=== PATIENT | female | born 1950 | race Caucasian/White ===

== ENCOUNTER → 2018-04-09 15:00 | Outpatient (CLI) | payer MEDICARE, OTHER, SELFPAY | DX: Z23 Encounter for immunization (principal) | CPT/HCPCS: 90471; 90662 ==

== ENCOUNTER → 2018-09-16 16:42 | Outpatient (CLI) | payer MEDICARE, OTHER, SELFPAY ==
--- NOTE | 2018-09-16 16:44 | DI.RAD.S_ITS ---
PROCEDURE: XR CHEST 2V INDICATIONS: COUGH AND INFLUENZA TECHNIQUE: 2 views of the chest were acquired. COMPARISON: [facility], CHEST 2 VIEW, 02/11/2017, 11:38. [facility], CHEST 2 VIEW, 11/24/2013, 13:37. FINDINGS: Surgical changes and devices: None. Lungs and pleura: Lungs are abnormal with large lung volumes and possible COPD. No pleural effusions or pneumothorax. Mediastinum: Mediastinal contours are normal. Heart size is normal. Bones and chest wall: No suspicious bony abnormalities. Soft tissues appear unremarkable. IMPRESSION: The lung volumes are large, COPD is suspected. No pneumonia found. Dictated by: Leo Benítez M.D. on 09/16/2018 at 17:16 Approved by: Leo Benítez M.D. on 09/16/2018 at 17:16
== END ==
PROVIDERS: Visit Provider Student in an Organized Health Care Education/Training Program
DX: R05 Cough (principal); J09.X2 Influenza due to identified novel influenza A virus with other respiratory manifestations
CPT/HCPCS: 71046

== ENCOUNTER → 2018-09-25 08:59 | Outpatient (CLI) | payer MEDICARE, OTHER, SELFPAY ==
--- NOTE | 2018-09-25 | DI.RAD.S_ITS ---
PROCEDURE: XR CHEST 2V INDICATIONS: DIAGNOSED WITH INFLUENZA, RECENT CHEST XRAY WAS NEGATIVE TECHNIQUE: 2 views of the chest were acquired. COMPARISON: [facility], CR, XR CHEST 2V, 09/16/2018, 16:48. FINDINGS: Surgical changes and devices: None. Lungs and pleura: No acute consolidation. Scattered subsegmental atelectasis and/or scarring. No pleural effusions or pneumothorax. Mediastinum: Mediastinal contours are normal. Heart size is normal. Bones and chest wall: No suspicious bony abnormalities. Soft tissues appear unremarkable. IMPRESSION: Scattered scarring/atelectasis. No acute consolidation. Dictated by: Curtis Ceballos M.D. on 09/25/2018 at 9:31 Approved by: Curtis Ceballos M.D. on 09/25/2018 at 9:31
== END ==
PROVIDERS: PCP Physician Assistant; Visit Provider Internal Medicine
DX: J10.00 Influenza due to other identified influenza virus with unspecified type of pneumonia (principal); J18.9 Pneumonia, unspecified organism
CPT/HCPCS: 71046

== ENCOUNTER → 2018-10-14 11:24 | Outpatient (CLI) | payer MEDICARE, OTHER, SELFPAY ==
--- NOTE | 2018-10-14 | DI.MG.S_ITS ---
BILATERAL DIGITAL SCREENING MAMMOGRAM 3D/2D WITH CAD: 10/14/2018 CLINICAL: Routine screening. Family history of breast cancer. Comparison is made to exams dated: 09/26/2017 mammogram, 09/12/2016 mammogram, and 09/05/2015 mammogram - [facility]. There are scattered fibroglandular elements in both breasts. Current study was also evaluated with a Computer Aided Detection (CAD) system. There are benign calcifications in the right breast. No significant masses, calcifications, or other findings are seen in either breast. There has been no significant interval change. IMPRESSION: There is no mammographic evidence of malignancy. A 1 year screening mammogram is recommended. This exam was interpreted at Station ID: [id number]. NOTE: For mammograms, a report in lay terms will be sent to the patient. Approximately 15% of breast malignancies will not be visualized mammographically. In the management of a palpable breast mass, a negative mammogram must not discourage biopsy of a clinically suspicious lesion. Electronically Signed By: Jaret knight/shekhar:10/15/2018 07:59:46 letter sent: Normal Exam ACR BI-RADS Category 2: Benign Finding(s) 3342F
== END ==
PROVIDERS: PCP Physician Assistant; Visit Provider Physician Assistant
DX: Z12.31 Encounter for screening mammogram for malignant neoplasm of breast (principal); Z80.3 Family history of malignant neoplasm of breast
CPT/HCPCS: 77063; 77067

== ENCOUNTER → 2019-01-05 09:26 | Outpatient (CLI) | payer MEDICARE, OTHER, SELFPAY | PROVIDERS: PCP Internal Medicine; Visit Provider Internal Medicine | DX: M85.852 Other specified disorders of bone density and structure, left thigh (principal); Z78.0 Asymptomatic menopausal state; Z82.62 Family history of osteoporosis | CPT/HCPCS: 77080 ==

== ENCOUNTER → 2019-04-16 11:38 | Outpatient (CLI) | payer MEDICARE, OTHER, SELFPAY ==
[2019-04-16 12:25] LABS: Alanine Aminotransferase 22 IU/L (9-52); Albumin 4.3 g/dL (3.5-5.0); Albumin Globulin Ratio 1.7 (1.0-2.8); Alkaline Phosphatase 62 U/L (38-126); Aspartate Aminotransferase 32 IU/L (14-36); BUN Creatinine Ratio 16.7 (6-22); Blood Urea Nitrogen 15 mg/dL (7-17); Calcium 10.3 mg/dL (8.4-10.2); Carbon Dioxide 28 mmol/L (22-32); Chloride 104 mmol/L (98-107); Estimated Glomerular Filt Rate > 60.0 mL/min (>60); Globulin 2.5 g/dL (1.7-4.1); Glucose 134 mg/dL (80-110); HEMOLYSIS < 15 (0-50); Potassium 4.1 mmol/L (3.4-5.1); Sodium 138 mmol/L (137-145); Total Protein 6.8 g/dL (6.3-8.2)
[2019-04-21 07:38] LABS: Parathyroid Hormone Int 15 pg/mL (14-64)
[2019-04-24 13:59] LABS: Ionized Calcium 5.5 mg/dL (4.8-5.6)
== END ==
PROVIDERS: PCP Physician Assistant; Visit Provider Physician Assistant
DX: R53.83 Other fatigue (principal); E83.52 Hypercalcemia
CPT/HCPCS: 36415; 80053; 82330; 83970

== ENCOUNTER → 2019-07-19 12:05 | Outpatient (CLI) | payer MEDICARE, OTHER, SELFPAY ==
[2019-07-19 12:47] LABS: Add Manual Diff / Slide Review NO; Basophils Absolute Auto 100 /uL (0-100); Basophils Percent Auto 0.8 % (0-2); Eosinophils Absolute Auto 100 /uL (0-450); Eosinophils Percent Auto 1.7 % (2-4); Hemoglobin 13.1 g/dL (12.0-16.0); Lymphocytes Absolute Auto 900 /uL (1100-4500); Lymphocytes Percent Auto 15.3 % (25-40); Mean Corpuscular HGB Conc 33.7 % (30-36); Mean Corpuscular Hemoglobin 30.3 PG (26-34); Monocytes Absolute Auto 300 /uL (0-900); Monocytes Percent Auto 4.1 % (3-14); Neutrophils Absolute Auto 4800 /uL (1500-7000); Neutrophils Percent Auto 78.1 % (50-75); Platelet Count 268 X10^3/uL (150-400); Red Blood Cell Count 4.33 X10^6/uL (4.0-5.2); Red Cell Distribution Width 13.2 % (11.6-14.8); White Blood Cell Count 6.1 X10^3/uL (4.5-11.0)
[2019-07-19 12:54] LABS: Alanine Aminotransferase 25 IU/L (<35); Albumin 4.7 g/dL (3.5-5.0); Alkaline Phosphatase 64 U/L (38-126); Aspartate Aminotransferase 35 IU/L (14-36); BUN Creatinine Ratio 16.7 (6-22); Blood Urea Nitrogen 15 mg/dL (7-17); Calcium 10.9 mg/dL (8.4-10.2); Carbon Dioxide 28 mmol/L (22-32); Chloride 105 mmol/L (98-107); Cholesterol 241 mg/dL (140-199); Estimated Glomerular Filt Rate > 60.0 mL/min (>60); Globulin 2.4 g/dL (1.7-4.1); Glucose 101 mg/dL (80-110); HDL Cholesterol 67 mg/dL (40-60); HEMOLYSIS < 15 (0-50); LDL Cholesterol Calculated 140 mg/dL (<100); Potassium 4.6 mmol/L (3.4-5.1); Sodium 141 mmol/L (137-145); Total Protein 7.1 g/dL (6.3-8.2); Triglycerides 172 mg/dL (35-150)
[2019-07-19 13:22] LABS: Lithium 0.9 mmol/L (0.6-1.2)
[2019-07-19 13:45] LABS: Free T4, Direct Thyroxine 0.79 ng/dL (0.78-2.19)
[2019-07-19 13:59] LABS: Thyroid Stimulating Hormone 2.36 uIU/mL (0.47-4.68)
[2019-07-23 20:19] LABS: Lamotrigine Lamictal 6.7 mcg/mL (4.0-18.0)
== END ==
PROVIDERS: PCP Physician Assistant; Visit Provider Psychiatry & Neurology Psychiatry
DX: F33.2 Major depressive disorder, recurrent severe without psychotic features (principal); E78.5 Hyperlipidemia, unspecified
CPT/HCPCS: 36415; 80053; 80061; 80175; 80178; 84439; 84443; 85025

== ENCOUNTER → 2020-02-08 12:10 | Outpatient (CLI) | payer MEDICARE, OTHER, SELFPAY ==
--- NOTE | 2020-02-08 | DI.RAD.S_ITS ---
PROCEDURE: XR LUMBAR SPINE 2-3V INDICATIONS: PAIN IN BOTH LEGS TECHNIQUE: 3 views of the lumbar spine were acquired. COMPARISON: None. FINDINGS: Bones: Findings [id number] vertebrae are present. There is mild convex right lumbar spine curvature. There is mild L4-L5 anterolisthesis. No vertebral body compression fractures. No suspicious bony lesions. Severe L2-L3 degenerate disc disease. Moderate L4-L5 and L5-S1 degenerative disease. Mild L1-L2 and L3-L4 degenerative disc disease. Mild L4-L5 and L5-S1 facet arthropathy. Soft tissues: Overlying bowel gas pattern is normal. No suspicious soft tissue calcifications. IMPRESSION: 1. Multilevel degenerative disease. 2. Multilevel facet arthropathy. 3. No fracture. No acute osseous lesion. If symptoms and/or clinical suspicion for pathology persists, evaluation with MRI may be helpful for further assessment. Dictated by: Sherlyn Barrios MD, PhD on 02/08/2020 at 18:00 Approved by: Sherlyn Barrios MD, PhD on 02/08/2020 at 18:02
[2020-02-08 13:51] LABS: Add Manual Diff / Slide Review NO; Basophils Absolute Auto 0 /uL (0-100); Basophils Percent Auto 0.8 % (0-2); Eosinophils Absolute Auto 100 /uL (0-450); Eosinophils Percent Auto 1.5 % (2-4); Hematocrit 37.6 % (36-46); Hemoglobin 12.5 g/dL (12.0-16.0); Lymphocytes Absolute Auto 1000 /uL (1100-4500); Lymphocytes Percent Auto 15.7 % (25-40); Mean Corpuscular HGB Conc 33.2 % (30-36); Mean Corpuscular Hemoglobin 29.3 PG (26-34); Mean Corpuscular Volume 88.2 fL (80-100); Monocytes Absolute Auto 300 /uL (0-900); Monocytes Percent Auto 4.8 % (3-14); Neutrophils Absolute Auto 4700 /uL (1500-7000); Neutrophils Percent Auto 77.2 % (50-75); Platelet Count 251 X10^3/uL (150-400); Red Blood Cell Count 4.26 X10^6/uL (4.0-5.2); Red Cell Distribution Width 12.9 % (11.6-14.8); White Blood Cell Count 6.1 X10^3/uL (4.5-11.0)
[2020-02-08 14:06] LABS: HEMOLYSIS < 15 (0-50); Iron 134 ug/dL (37-170); Lithium 0.8 mmol/L (0.6-1.2)
[2020-02-08 14:12] LABS: Alanine Aminotransferase 28 IU/L (<35); Albumin 4.5 g/dL (3.5-5.0); Albumin Globulin Ratio 1.9 (1.0-2.8); Alkaline Phosphatase 68 U/L (38-126); Aspartate Aminotransferase 31 IU/L (14-36); BUN Creatinine Ratio 17.9 (6-22); Bilirubin Total 1.1 mg/dL (0.2-1.3); Blood Urea Nitrogen 15 mg/dL (7-17); Calcium 10.3 mg/dL (8.4-10.2); Carbon Dioxide 28 mmol/L (22-32); Chloride 106 mmol/L (98-107); Cholesterol 225 mg/dL (140-199); Estimated Glomerular Filt Rate > 60.0 mL/min (>60); Globulin 2.4 g/dL (1.7-4.1); Glucose 98 mg/dL (80-110); HDL Cholesterol 61 mg/dL (40-60); HEMOLYSIS < 15 (0-50); LDL Cholesterol Calculated 125 mg/dL (<100); Potassium 4.4 mmol/L (3.4-5.1); Sodium 138 mmol/L (137-145); Total Protein 6.9 g/dL (6.3-8.2); Triglycerides 195 mg/dL (35-150)
[2020-02-08 14:17] LABS: Percent Iron Saturation 44 % (15-50); Total Iron Binding Capacity 303 ug/dL (265-497); Transferrin 233 mg/dL (206-381)
[2020-02-08 14:38] LABS: TSH w/ Reflex to FT4 2.14 uIU/mL (0.47-4.68)
[2020-02-08 14:46] LABS: Vitamin D 25 Hydroxy (D3) 19.2 ng/mL (30.0-100.0)
[2020-02-09 06:40] LABS: Parathyroid Hormone Int 25 pg/mL (15-65)
== END ==
PROVIDERS: PCP Physician Assistant; Referring Provider Physician Assistant; Visit Provider Physician Assistant
DX: M79.662 Pain in left lower leg (principal); M79.661 Pain in right lower leg; M51.36 Other intervertebral disc degeneration, lumbar region; M51.37 Other intervertebral disc degeneration, lumbosacral region; M47.816 Spondylosis without myelopathy or radiculopathy, lumbar region; M47.817 Spondylosis without myelopathy or radiculopathy, lumbosacral region; K11.7 Disturbances of salivary secretion; F33.9 Major depressive disorder, recurrent, unspecified; E03.9 Hypothyroidism, unspecified; F41.9 Anxiety disorder, unspecified; D50.9 Iron deficiency anemia, unspecified; E55.9 Vitamin D deficiency, unspecified; E78.2 Mixed hyperlipidemia
CPT/HCPCS: 36415; 72100; 80053; 80061; 80178; 82306; 83540; 83550; 83970; 84443; 85025; 99214

== ENCOUNTER → 2020-03-01 15:28 | Outpatient (CLI) | payer MEDICARE, OTHER, SELFPAY ==
--- NOTE | 2020-03-01 | DI.MRI.S_ITS ---
PROCEDURE: MR LUMBAR SPINE WO CON INDICATIONS: Spondylolisthesis, lumbar region TECHNIQUE: Noncontrast sagittal T1 spin echo and T2 fast echo, sagittal STIR, axial T1 and T2 fast spin echo through the lumbar spine. In cases with scoliosis, additional coronal T2 fast spin echo may be performed. COMPARISON: [facility], MR, L-SPINE WITHOUT CONTRAST, 01/02/2010, 18:12. [facility], CR, XR LUMBAR SPINE 2-3V, 02/08/2020, 12:08. FINDINGS: Image quality: This examination is limited by involuntary motion artifact. Alignment and Curvature: S-shaped scoliotic curvature is seen. There is minimal retrolisthesis seen at L2-3. Mild retrolisthesis is seen at L3-4. Mild grade 1 anterolisthesis is seen at L4-5, without associated pars defects. Minimal retrolisthesis is seen at L5-S1. Bone Marrow: Marrow is of normal overall signal. No acute vertebral body compression fractures. Spinal Cord: Conus medullaris terminates at the T12-L1 level. Visualized cord demonstrates normal signal and size. Paraspinous Soft Tissues: No paravertebral masses. T12-L1: Mild loss of disc height is seen. Loss of disc signal is seen. Mild disc bulge is seen, with a central disc extrusion, which is best seen on series 3, image 11. No significant neural foraminal narrowing is seen. Mild central canal narrowing is seen, as on series 5, image 8. The central disc extrusion is new compared to 2010. L1-L2: Mild loss of disc height is seen. Loss of disc signal is seen. Mild to moderate disc bulge is seen. Mild to moderate facet hypertrophy is seen. Associated hypertrophy of the ligamentum flavum can be seen. At least moderate bilateral neural foraminal narrowing is seen. Moderate central canal narrowing is seen. These imaging findings have progressed compared to the prior study. L2-L3: Moderate to severe loss of disc height and disc signal can be seen. Reactive marrow endplate changes are seen, which demonstrate mixed T1 weighted and T2-weighted signal, and are attributed to a combination of edema and fatty metaplasia (Modic type I and Modic type II changes). At least moderate disc bulge is seen. There is a mild central disc protrusion seen. There is mild to moderate facet hypertrophy seen. Fluid is seen within the facet joints themselves. There is moderate bilateral neural foraminal narrowing seen. At least moderate central canal narrowing is seen. These degenerative changes are worse than in 2010. L3-L4: The disc height is well-preserved. Loss of disc signal is seen at this level. At least moderate disc bulge is seen. There is a central disc extrusion seen. There is a focal annular fissure seen posteriorly. At least moderate facet hypertrophy is seen. Fluid is seen within the facet joints themselves. Associated hypertrophy of the ligamentum flavum can be seen. There is moderate to severe left-sided and at least moderate right-sided neural foraminal narrowing seen. Moderate to severe central canal narrowing is seen. These degenerative changes have progressed compared to 2010. L4-L5: The disc height is well-preserved. Loss of disc signal is seen at this level. Moderate disc bulge is seen, with a central disc protrusion. Prominent facet hypertrophy is seen. Associated hypertrophy of the ligamentum flavum can be seen. Fluid is seen within the facet joints themselves. There is at least moderate bilateral neural foraminal narrowing seen, right worse than left. There is a degree of compression seen upon the exiting nerve roots. Moderate to severe central canal narrowing is seen, as on series 5, image 27. These imaging findings have progressed compared to the prior study. L5-S1: Moderate to severe loss of disc height and disc signal can be seen. Moderate generalized disc bulge is seen. Moderate facet joint hypertrophy is seen. Moderate bilateral neural foraminal narrowing is seen, right worse than left. Minimal central canal narrowing is seen. When comparison is made with the prior examination, these findings are similar. IMPRESSION: Multiple levels of lumbar spine degenerative change are seen, which have clearly progressed compared to 2010. Dictated by: Tevin Abdalla M.D. on 03/01/2020 at 16:58 Approved by: Tevin Abdalla M.D. on 03/01/2020 at 17:05
== END ==
PROVIDERS: PCP Physician Assistant; Referring Provider Physician Assistant; Visit Provider Orthopaedic Surgery
DX: M47.816 Spondylosis without myelopathy or radiculopathy, lumbar region (principal); M47.817 Spondylosis without myelopathy or radiculopathy, lumbosacral region; M43.16 Spondylolisthesis, lumbar region
CPT/HCPCS: 72148

== ENCOUNTER 2020-06-08 13:41 | Emergency (ER) | payer MEDICARE, OTHER, SELFPAY ==
[2020-06-08] VITALS (7 sets, daily range): BP systolic 116–133; BP diastolic 59–73; PULSE 66–74; RESP 18; TEMP 36.2; O2SAT 98–100; BMI 22.8
--- NOTE | 2020-06-08 14:08 | PC.NURSE ---
Pt states she took too much of her Lamictal accidently. Rec'd a new RX from Dr Richmond that she states the pharmacy made a mistake of what they filled pt ended up taking 600mg instead of normal 200mg. reports felt weird this morning with mild dizziness, headache and nausea. States resolution of SX around noon today. Poison controlled called and spoke to [facility] Augustin. States not a toxic dose of Lamictal although side effects of dose taken are common. Advised of current EKG intervals and all WNL at this time. Advised to watch for increased ME and QRS intervals. Advised usual 5-6hr observation and that pt can be DC'd if asymptomatic since arrival is about [address] Kate made aware of conversation with Poison control. No new orders at this time. Pt resting on stretcher in NAD and VS WNL.
--- NOTE | 2020-06-08 14:12 | ED_ITS ---
HPI - Overdose General Chief Complaint: Toxicology Problem Stated Complaint: sent by Doctor Basilio for EKG Time Seen by Provider: 06/08/20 14:09 Source: patient Mode of arrival: Ambulatory Limitations: no limitations History of Present Illness HPI Narrative: This is a 70-year-old female who comes emergency department for concern for accidental overdose of her Lamictal. Patient states that she was instructed to take 100 mg of Lamictal in the morning and 100 mg in the evening but her prescription was 200 mg and she describes it as being possibly written is half tablet in the morning and half tablet in the evening but she misunderstood and was taking 200 mg in the morning and and 200 mg in the evening on Friday followed by 200 mg in the morning and 400 mg yesterday evening. She took an additional 200 mg this morning at about 9:30 a.m. and about 30 minutes later felt dizzy, felt like she had double vision and that she was sort of staggering around and felt nauseated. She also felt very twitchy. She has had a mild headache, she denies any chest pain or shortness of breath. She was nauseated but did not have any vomiting. She denies any new weakness, numbness or tingling in her extremities. No difficulty with speech. She did feel sort of foggy. She does normally takes prazosin and gabapentin which her long-term medications and they have been decreasing her lithium level over the last 2 week s. She takes these for depression. She denies any other current medications. She follows with Dr. Richmond as her psychiatrist and Mamta Boudreaux as her PCP. Related Data Previous Rx's Medication Instructions Recorded gabapentin 100 mg capsule 300 mg PO BID #120 cap 02/01/20 prazosin 1 mg capsule 3 mg PO BEDTIME #90 cap 02/01/20 lithium carbonate 300 mg tablet 450 mg PO BEDTIME #135 tab 03/22/20 hydroxyzine HCl 50 mg tablet 100 mg PO BEDTIME #180 tab 06/05/20 lamotrigine 100 mg tablet 200 mg PO BEDTIME #180 tab 06/05/20 Allergies Allergy/AdvReac Type Severity Reaction Status Date / Time fluoxetine [From Prozac] AdvReac Intermediate hand Verified 06/05/20 13:31 tremors, muscle spasms sertraline [From Zoloft] AdvReac Intermediate cysts on Verified 06/05/20 13:31 body Review of Systems Review of Systems ROS Unobtainable: All systems reviewed & are unremarkable except as noted in HPI and below Patient History Medical History (Updated 06/08/20 @ 14:37 by Joyce Kate DO) Major depressive disorder, recurrent severe without psychotic features (Acute) Surgical History H/O wrist surgery (Acute) H/O: hysterectomy (Acute) Social History Smoking Status: Never smoker Smoking Status: Never smoker Exam Narrative Exam Narrative: GEN: well nourished, well appearing female, alert and oriented x 3, patient appears to be in mild distress. HEENT: Atraumatic, pupils are equal round reactive to light, extraocular movements are intact, nares are clear, TMs are clear with no fluid, there is no conjunctival pallor. Throat is clear without any exudates, erythema, tonsillar enlargement or uvular deviation, no facial droop, no dysarthria HEART: Regular rate and rhythm without murmur, clicks, rubs. Pulses are equal in upper and lower extremities LUNGS:Lungs clear to auscultation, no wheezes, rales, crackles, chest moves symmetrically ABD:bowel sounds normal, soft, non-tender, no guarding, rebound, rigidity, no masses noted, no hepatosplenomegaly MSCL: Non-tender, no muscle atrophy, muscles strength 5/5 upper and lower extremities, full range of motion, normal gait NEURO:CN 2-12 intact, sensation normal, reflexes 2/4 upper and lower extremities. finger nose finger test normal, heel martin test normal SKIN: No rash, no erythema or skin changes Initial Vital Signs Initial Vital Signs: Vital Signs Pulse Rate 72 06/08/20 14:02 Pulse Oximetry 100 06/08/20 14:02 Scores GCS Armstrong coma scale eye opening: Spontaneous Armstrong coma scale verbal response: Orientated Dayna coma scale motor response: Obey commands Armstrong coma scale total score: 15 NIH Stroke Scale Level of Conciousness: Alert, keenly responsive Ask month/age: Answers both questions correctly. Open/close eyes, close hand: Performs both tasks correctly Best gaze horizontal: Normal Visual yo: No visual loss Facial palsy: Normal symetrical movement Left arm drift: No drift for full 10 sec Right arm drift: No drift for full 10 sec Left leg drift: No drift for full 5 sec Right leg drift: No drift for full 5 sec Limb ataxia: Absent Sensory on face/arms/legs: Normal, no sensory loss Best language: No aphasia, normal Dysarthria: Normal Extinction or inattention: No abnormality Total NIH Stroke scale score: 0 Course Orders Ordered: ED Orders 06/08/20 13:52 EKG-12 Lead Stat 06/08/20 14:47 Acetaminophen Stat Complete Blood Count AUTO DIFF Stat Comprehensive Metabolic Panel Stat Ethanol (ETOH) Stat Hepatic (Liver) Panel Stat [place] Stat Salicylate Stat Consultations Consultation #1: Poison control was consulted 600 mg of Lamictal would not be considered a toxic stroke for this patient per poison Control. They typically recommend 6 hours of observation for higher doses. To look up for QRS of [place] prolongation. Vital Signs Vital signs: Vital Signs - 8 hr 06/08/20 14:02 06/08/20 14:03 06/08/20 14:30 Temperature 97.2 F L Pulse Rate 72 72 68 Respiratory Rate 18 Blood Pressure 133/63 128/59 L Pulse Oximetry 100 99 98 06/08/20 14:57 06/08/20 14:59 06/08/20 15:00 Temperature Pulse Rate 74 68 67 Respiratory Rate Blood Pressure 129/71 129/73 Pulse Oximetry 99 99 100 06/08/20 15:30 Temperature Pulse Rate 66 Respiratory Rate Blood Pressure 116/68 Pulse Oximetry 99 MDM - Overdose Lab Data Attestation: I reviewed the patient's lab results. Lab results narrative: Patient has anemia with a hemoglobin 11.8 although this is not far from her baseline of 12 and half in January and 10/14/2016. Chemistry shows chloride of 109 otherwise normal sodium and potassium, BUN is 19 with normal renal function. Salicylate, Tylenol and ETOH are all negative with a low lithium level which is not unexpected if they been decreasing her dose. Result diagrams: 06/08/20 14:47 06/08/20 14:47 Labs: Lab Results 06/08/20 06/08/20 06/08/20 Range/Units 14:47 14:47 14:47 WBC 5.8 (4.5-11.0) X10^3/uL RBC 4.05 (4.0-5.2) X10^6/uL Hgb 11.8 L (12.0-16.0) g/dL Hct 35.7 L (36-46) % MCV 88.3 (80-100) fL MCH 29.2 (26-34) PG MCHC 33.0 (30-36) % RDW 13.5 (11.6-14.8) % Plt Count 255 (150-400) X10^3/uL Neut % (Auto) 75.7 H (50-75) % Lymph % (Auto) 17.4 L (25-40) % Stephenson % (Auto) 4.7 (3-14) % Eos % (Auto) 1.5 L (2-4) % Baso % (Auto) 0.7 (0-2) % Neut # (Auto) 4400 (9525-6741) /uL Lymph # (Auto) 1000 L (7241-5194) /uL Stephenson # (Auto) 300 (0-900) /uL Eos # (Auto) 100 (0-450) /uL Baso # (Auto) 0 (0-100) /uL Sodium 139 (137-145) mmol/L Potassium 4.1 (3.4-5.1) mmol/L Chloride 109 H (98-107) mmol/L Carbon Dioxide 28 (22-32) mmol/L BUN 19 H (7-17) mg/dL Creatinine 0.87 (0.52-1.04) mg/dL Estimated GFR > 60.0 (>60) mL/min BUN/Creatinine Ratio 21.8 (6-22) Glucose 105 (80-110) mg/dL Calcium 9.3 (8.4-10.2) mg/dL Total Bilirubin 1.0 (0.2-1.3) mg/dL Conjugated Bilirubin 0.0 (0.0-0.3) md/dL Unconjugated Bilirubin 0.9 (0.0-1.1) mg/dL AST 29 (14-36) IU/L ALT 24 (<35) IU/L Alkaline Phosphatase 66 (38-126) U/L Total Protein 6.4 (6.3-8.2) g/dL Albumin 4.1 (3.5-5.0) g/dL Globulin 2.3 (1.7-4.1) g/dL Albumin/Globulin Ratio 1.8 (1.0-2.8) Salicylates < 1.0 (<20) mg/dL Acetaminophen < 10 L (10-30) ug/mL [place] 0.5 L (0.6-1.2) mmol/L Ethyl Alcohol < 10 ( - 10) mg/dL ECG Data Attestation: I personally reviewed and interpreted this ECG as follows: Interpretation: Sinus rhythm, rate of 70, [place] 173, QRS of 110 and QTC of 444. Possible ST depression in V4 possibly V5 no other significant changes appreciated. MDM Narrative Medical decision making narrative: Per poison control the amount of lamictal ingested per patient is not toxic. She did have 2-3 days of extra dosage and likely is having side effects. She also has been decreasing her lithium dose so plan to check lithium level she has not had 1 recently. Patient's symptoms have continued to improve. She does not have any acute EKG changes. She is 6 hours from her last ingestion which would be the typical observation per poison control and is currently asymptomatic for the last several hours. Discharge Plan Departure Patient Disposition: Home Clinical Impression: Accidental medication overdose Discharge Date/Time: 06/08/20 15:54 Activity Restrictions/Additional Instructions: Follow-up with Dr. Richmond your scheduled appointment. I would recommend restarting your lamictal at the appropriate prescribed dose is tomorrow. You may continue your other medications as prescribed. Return to the ER for any new or concerning symptoms such as severe headaches, recurrent vision changes, difficulty with speech, weakness, numbness or difficulty with movement or ambulation, persistent vomiting, rash, suicidal thoughts or worsening depression. Prescriptions: No Action hydroxyzine HCl 50 mg tablet 100 mg PO BEDTIME Qty: 180 RF: 3 lamotrigine 100 mg tablet 200 mg PO BEDTIME Qty: 180 RF: 3 prazosin 1 mg capsule 3 mg PO BEDTIME Qty: 90 RF: 1 gabapentin 100 mg capsule 300 mg PO BID Qty: 120 RF: 1 lithium carbonate 300 mg tablet 450 mg PO BEDTIME Qty: 135 RF: 2 Referrals: Mamta Boudreaux PA-C [Primary Care Provider] - Ward Richmond MD [Physician] -
[2020-06-08 14:52] LABS: Add Manual Diff / Slide Review NO; Basophils Absolute Auto 0 /uL (0-100); Basophils Percent Auto 0.7 % (0-2); Eosinophils Absolute Auto 100 /uL (0-450); Eosinophils Percent Auto 1.5 % (2-4); Hematocrit 35.7 % (36-46); Hemoglobin 11.8 g/dL (12.0-16.0); Lymphocytes Absolute Auto 1000 /uL (1100-4500); Lymphocytes Percent Auto 17.4 % (25-40); Mean Corpuscular Hemoglobin 29.2 PG (26-34); Mean Corpuscular Volume 88.3 fL (80-100); Monocytes Absolute Auto 300 /uL (0-900); Monocytes Percent Auto 4.7 % (3-14); Neutrophils Absolute Auto 4400 /uL (1500-7000); Neutrophils Percent Auto 75.7 % (50-75); Platelet Count 255 X10^3/uL (150-400); Red Blood Cell Count 4.05 X10^6/uL (4.0-5.2); Red Cell Distribution Width 13.5 % (11.6-14.8); White Blood Cell Count 5.8 X10^3/uL (4.5-11.0)
[2020-06-08 15:06] LABS: Acetaminophen < 10 ug/mL (10-30); Alanine Aminotransferase 24 IU/L (<35); Albumin 4.1 g/dL (3.5-5.0); Albumin Globulin Ratio 1.8 (1.0-2.8); Alkaline Phosphatase 66 U/L (38-126); Aspartate Aminotransferase 29 IU/L (14-36); BUN Creatinine Ratio 21.8 (6-22); Bilirubin Unconjugated 0.9 mg/dL (0.0-1.1); Blood Urea Nitrogen 19 mg/dL (7-17); Calcium 9.3 mg/dL (8.4-10.2); Carbon Dioxide 28 mmol/L (22-32); Chloride 109 mmol/L (98-107); Estimated Glomerular Filt Rate > 60.0 mL/min (>60); Ethanol (ETOH) < 10 mg/dL; Globulin 2.3 g/dL (1.7-4.1); Glucose 105 mg/dL (80-110); HEMOLYSIS < 15 (0-50); Potassium 4.1 mmol/L (3.4-5.1); Salicylate < 1.0 mg/dL (<20); Sodium 139 mmol/L (137-145); Total Protein 6.4 g/dL (6.3-8.2)
[2020-06-08 15:12] LABS: Lithium 0.5 mmol/L (0.6-1.2)
== END 2020-06-08 15:54 | disposition home or self-care (01) ==
PROVIDERS: Emergency Provider Emergency Medicine; PCP Physician Assistant
DX: T42.6X1A Poisoning by other antiepileptic and sedative-hypnotic drugs, accidental (unintentional), initial encounter (principal); R51.9 Headache, unspecified; R11.0 Nausea; D64.9 Anemia, unspecified; R07.9 Chest pain, unspecified
CPT/HCPCS: 36415; 80053; 80076; 80178; 80320; 80329; 85025; 93005; 99283; 99284; G0480

== ENCOUNTER → 2020-06-26 11:12 | Outpatient (CLI) | payer MEDICARE, OTHER, SELFPAY ==
[2020-06-26 13:08] LABS: COVID19 -Nasal RAPID Negative (Negative)
== END ==
PROVIDERS: PCP Physician Assistant; Visit Provider Physician Assistant
DX: Z11.59 Encounter for screening for other viral diseases (principal)
CPT/HCPCS: 87635

== ENCOUNTER 2020-06-29 12:08 | Inpatient (IN) | payer MEDICARE, OTHER, SELFPAY ==
[2020-06-16 09:35] VITALS: BMI 22.4
[2020-06-29] VITALS (20 sets, daily range): BP systolic 95–116; BP diastolic 58–77; PULSE 63–79; RESP 8–99; TEMP 35.6–36.7; O2SAT 85–100; BMI 22.4
--- NOTE | 2020-06-29 | DI.RAD.S_ITS ---
PROCEDURE: XR LUMBAR SPINE 2-3V INDICATIONS: L4-5 XLIF LAMI TECHNIQUE: 4 spot fluoroscopic intraoperative views of the lumbar spine were acquired. COMPARISON: [facility], , XR LUMBAR SPINE 2-3V, 02/08/2020, 12:08. FINDINGS: Spot intraoperative fluoroscopic images demonstrate postsurgical changes from posterior fusion of the L4-5 level with pedicle screws and interbody rods. A disc spacer is seen at the L4-5 level. IMPRESSION: Intraoperative images demonstrate posterior fusion at the L4-5 level. Dictated by: Roberto Sterling M.D. on 06/29/2020 at 17:23 Approved by: Roberto Sterling M.D. on 06/29/2020 at 17:25
[2020-06-29] MEDS: LACTATED RINGERS 1,000 ML 42 ML IV ×2 (12:50→14:12)
--- NOTE | 2020-06-29 13:00 | PM.PREOP ---
Pre-operative Note COVID-19 COVID-19 status: Negative Result date/Date tested (Pos, Neg/Pending): 06/26/20 Interval Note History & Physical reviewed/Exam performed by Physician: Yes Changes to H&P: No
[2020-06-29] MEDS: CEFAZOLIN 2 GM/100 ML FROZ.PIGGY IV ×2 (13:06→20:57)
--- NOTE | 2020-06-29 13:55 | SUR.OPER ---
Part 1: Right lateral on padded OR table. Head on pillow, gel axillary roll, pillow to support left arm. Legs flexed, pillows between legs, gel pad under down leg and ankle. Multiple passes of 3 inch cloth tape across shoulder, hip, upper and lower legs to secure patient on OR table. Part 2: Prone on spine table, head in foam head support, padded chest and pelvic supports, gel pad at knees, lower legs supported by pillows; nipples, genitalia and toes free of pressure, arms secured on foam padded arm boards at <90 degrees abduction. Tape over blanket at thigh secured to table.
[2020-06-29] MEDS: BUPIVACAINE 0.5% (PF) 4 ML, MORPHINE-PF 4 MG, BUTORPHANOL 1 MG, fentaNYL 100 MCG INJ (14:08)
[2020-06-29] MEDS: VANCOMYCIN 1,000 MG VIAL 1000 MG TOP (14:08)
[2020-06-29] MEDS: THROMBIN (RECOMBINANT) 5,000 UNIT VIAL 5000 UNIT TOP (14:09)
[2020-06-29] MEDS: SODIUM CHLORIDE 0.9% 1,000 ML, GENTAMICIN 80 MG IRR ×2 (14:09→14:13)
--- NOTE | 2020-06-29 17:02 | PM.OP.1 ---
Operative Date/Time/Diagnoses Date of procedure: 06/29/20 Time of procedure: 17:02 Pre-op diagnosis: lumbar stenosis with radiculopathy lumbar spondylolisthesis and scoliosis Post-op diagnosis: same Procedure & Clinicians Procedure: L34, L45 laminectomies L45 anterior fusion with cage L45 posterior fusion with screws iliac crest bone graft microscope placement of epidural catheter Same procedure as scheduled: Yes Indications: [age] year old female with intractable pain from stenosis. They had failed conservative management and requested operative intervention. Risks and benefits of surgery were discussed and appropriate consents were obtained. Surgeon: Charli Wilkes Maintenance Groundskeeper: Naomi Galloway Anesthesia Type: General Operative Notes Findings: none Closure Type: primary Specimen(s): none sent Prosthetic devices, grafts, tissues, transplants, or devices: NuVasive XLIF cage and MAS Reline screws Applied: catheter Estimated Blood Loss (mL): 50 Procedure in detail: Patient was brought to the operating room and intubated on the table. Time-out was performed. They were then rolled over to the lateral decubitus position with the [id number]. The table was bent and they were taped down in the correct position. X-rays were taken to confirm a true AP and lateral. Preoperative antibiotics were given. The left flank was prepped and draped in standard sterile fashion. Using fluoroscopy, a 3 cm incision was made above the iliac crest. We bluntly dissected down with Metzenbaum scissors and split the 3 abdominal muscle layers. We dissected out the retroperitoneal space and using finger guidance, brought our 1st dilator down to the psoas muscle. Using neuromonitoring and fluoroscopy, we placed it through the psoas onto the L4-5 disc space in an anterior position and gradually pulled the dilator posteriorly along the disc space. We placed our guidewire and measured our depth for the retractor. We then dilated with the next 2 dilators and then placed our retractor over the dilators. Position was confirmed with fluoroscopy and the retractor was locked down to the bar. We opened up the retractor and checked with neuro monitoring. We then placed the lorenzo and again checked with neuro monitoring. The retractor was opened further and the ALL retractor was placed. An annulotomy was performed. We then performed a complete diskectomy with ring curette, pituitary, box osteotome. A Jones was advanced across the disc space under fluoroscopy to release the lateral annulus on the opposite side. We then used sequentially larger trials and confirmed under fluoroscopy. An XLIF cage was packed with Osteocel bone graft and impacted into the L4-5 disc space with fluoroscopy for the anterior fusion at this level. The wound was irrigated. The retractor was closed down. The lorenzo was removed. We carefully removed the retractor with direct visualization to make sure there was no neurovascular or abdominal injury. Final x-rays were taken. The muscle fascia was closed, superficial tissue was closed. The skin was closed. Sterile dressing was placed. The patient was then rolled over on the well-padded prone position on the Jaxon table. Using fluoroscopy for localization, a 4 incision was made to the right of the midline. Bovie used to come down to and split the fascia. We then percutaneously placed Jamshidi needles down the right pedicles of L4 and L5 under fluoroscopic guidance with neural monitoring. These were tapped and the screw shanks were placed. We opened up our retractors and used Bovie to clear out the posterolateral gutter as well as the lamina to the spinous process. The bur was used to decorticate the transverse processes. We brought in a microscope. A laminectomy was performed at L4-5 with partial facetectomy using a bur and Kerrison rongeurs. We carefully depressed the dura and reach to the opposite side to decompress it. At the end we could sweep the ball probe cephalad, caudally and out the foramen and it was open. We then rotated the retractor up to the L3-4 level and dissected over the lamina. Again a laminectomy was performed completely undermining the other side using a bur and Kerrison rongeurs. In the end the ball probe was moved throughout everything was open. The wound was copiously irrigated. An epidural catheter was primed with 4mL of 0.5% bupivacaine, 100 mcg fentanyl, 4 mg Duramorph, 1 mg Stadol. The dura was depressed under the cephalad lamina with a ball probe and the epidural catheter was gently advanced 6 cm cephalad. The screw heads were placed and then the starla was measured and locked down. A small stab incision was made over the PSIS and a Jamshidi needle was placed into the iliac crest and several mL of bone marrow was aspirated. This was mixed with our locally harvested bone graft as well as the remaining Osteocel and placed in the posterolateral gutter for fusion at L4-5. The fascia was then closed. The epidural was then injected without resistance. The catheter was pulled and we closed more over the fascia. We then made a 3 cm incision on the left side and used Bovie to split the fascia. We percutaneously placed Jamshidi needles down the pedicles of L4 and L5 on the left. This was done with neural monitoring and fluoroscopy. We changed these out over guidewires and tapped and placed our screws. We placed our starla and locked down. Final x-rays were taken. The wound was irrigated. The fascia was closed. Both wounds were irrigated again. Vancomycin powder was placed in the wounds. The superficial and skin were closed. Sterile dressing was placed. The patient was then rolled over, extubated, brought to the recovery room with no complications. Complications: none Post-operative Condition: stable Disposition: PACU Plan for aftercare: Inpatient. Up with PT.
[2020-06-29] MEDS: OXYCODONE/ACETAMINOPHEN 5/325 TABLET 1 TAB PO (17:52)
[2020-06-29] MEDS: LACTATED RINGERS 1,000 ML 125 ML IV (18:43)
[2020-06-29] MEDS: ONDANSETRON 4 MG/2 ML INJ IV (18:44)
[2020-06-29] MEDS: lamoTRIgine 100 MG TABLET 200 MG PO (20:57)
[2020-06-29] MEDS: DOCUSATE 100 MG CAPSULE PO (20:58)
[2020-06-29] MEDS: SENNOSIDES 8.6 MG TABLET 17.2 MG PO (20:58)
[2020-06-29] MEDS: LITHIUM 150 MG IR CAPSULE 450 MG PO (20:58)
[2020-06-29] MEDS: GABAPENTIN 300 MG CAPSULE PO (21:03)
[2020-06-30] VITALS (9 sets, daily range): BP systolic 80–125; BP diastolic 48–68; PULSE 66–78; RESP 14–18; TEMP 35.7–36.7; O2SAT 97–99
[2020-06-30] MEDS: ONDANSETRON 4 MG/2 ML INJ IV ×2 (00:29→07:53)
[2020-06-30] MEDS: OXYCODONE/ACETAMINOPHEN 5/325 TABLET 1 TAB PO ×3 (02:04→18:54)
[2020-06-30] MEDS: LACTATED RINGERS 1,000 ML 125 ML IV ×2 (03:19→14:50)
[2020-06-30] MEDS: CEFAZOLIN 2 GM/100 ML FROZ.PIGGY IV (04:55)
[2020-06-30 05:55] LABS: Hematocrit 31.3 % (36-46); Hemoglobin 10.4 g/dL (12.0-16.0)
--- NOTE | 2020-06-30 08:26 | PC.NURSE ---
Addendum entered by Joan Avery R.N. 06/30/20 12:11: Patient took a few bites of her chicken noodle soup and threw up 400cc of yellow fluid. She is extremely tired after ativan given and now back in bed comfortable. Will try reglan a bit later if nausea still present, zofran did not seem to help patient. Addendum entered by Joan Avery R.N. 06/30/20 11:55: Patient sitting up in chair, she is sleepy from the ativan. But this has helped with her Nausea. She is going to lay down after lunch. Does not feel like she is ready to take any po pills by mouth yet. Addendum entered by Joan Avery R.N. 06/30/20 10:24: Patient had a 500cc emesis after eating a banana, eggs, and apple. aware and patient given 0.5mg of iv ativan. This seems to have been helpful to her. If she complains of more pain, will give her a small dose of iv pain medication. After bolus of NS her bp 117/58, p72. Original Note: Assess-Patient states that she is nauseous, given zofran and she states that this is helping her. Her coloring is peaked, bp low r.arm 85/51, pulse 74 and r.arm 83/58. She states that she has been feeling dizzy and slightly syncopal. Raised legs above heart. She complains of pain to her back and l.side, will medicate her after the zofran has time to rid patient of her nausea. She has a dressing to her lower back with one steri strip to the r.lower side that is cdi and a dressing to her l.flank also cdi. Patient denies any numbness or tingling and is resting comfortably. Called Dr. Wilkes and he states to give patient a NS bolus of 1000cc over 1 hour, this is infusing now.
[2020-06-30] MEDS: SODIUM CHLORIDE 0.9% 1,000 ML 1000 ML IV (08:30)
--- NOTE | 2020-06-30 09:28 | PM.PNPO.1 ---
Subjective Subjective Date Patient Seen: 06/30/20 Time Patient Seen: 09:28 Interval history: She is doing very well. No discomfort in the arms. Still little difficulty swallowing be getting food down. Exam Vital Signs (past 8 hours): - 06/30/20 03:52 06/30/20 07:40 06/30/20 07:42 Temperature 97.5 F L 96.9 F L Pulse Rate 66 71 69 Respiratory Rate 18 16 Blood Pressure 98/58 L 80/48 L 83/55 L Pulse Oximetry 99 97 06/30/20 09:26 Temperature Pulse Rate 72 Respiratory Rate Blood Pressure 117/58 L Pulse Oximetry Oxygen Delivery Method Room Air Oxygen Flow Rate 0 Const Orientation: alert and oriented x3 Back/Spine/Pelvis Other: CDI. 5/5 motor both upper extremities. Objective Labs Result Diagrams: 06/30/20 05:33 Labs: Laboratory Results - last 24 hr 06/30/20 05:33 Hgb 10.4 L Hct 31.3 L PFSH Medical History (Updated 06/23/20 @ 00:00 by ) Arthritis Heart murmur Lumbar stenosis Major depressive disorder, recurrent severe without psychotic features Spondylisthesis Surgical History (Updated 06/16/20 @ 10:06 by Monica Delgado RN) H/O wrist surgery H/O: hysterectomy Hx of bilateral cataract extraction Hx of hernia repair Social History household members: spouse Smoking Status: Never smoker alcohol intake: former Assessment & Plan Post-op Postoperative Procedures: Procedures Operation Date: 06/29/20 13:45 Actual Procedures Side Surgeon p L34, L45 laminectomies, L45 anterior/posterior instrumentated fusion w/ bone graft Charli Wilkes MD She is doing very well. Mobilize with therapy this morning then discharge home.
[2020-06-30] MEDS: LORazepam 2 MG/ML INJ 0.5 MG IV ×2 (09:45→21:52)
--- NOTE | 2020-06-30 09:48 | PM.PNPO.1 ---
Subjective Subjective Date Patient Seen: 06/30/20 Time Patient Seen: 09:48 Interval history: Very little pain although it is starting to feel a little more discomfort. The legs feel fine. Her main problem really is nausea. She has been throwing up and not comfortable. She also had some low blood pressure overnight that has resolved with fluid bolus. Exam Vital Signs (past 8 hours): - 06/30/20 03:52 06/30/20 07:40 06/30/20 07:42 Temperature 97.5 F L 96.9 F L Pulse Rate 66 71 69 Respiratory Rate 18 16 Blood Pressure 98/58 L 80/48 L 83/55 L Pulse Oximetry 99 97 06/30/20 09:26 Temperature Pulse Rate 72 Respiratory Rate Blood Pressure 117/58 L Pulse Oximetry Oxygen Delivery Method Room Air Oxygen Flow Rate 0 Const Orientation: alert and oriented x3 Back/Spine/Pelvis Other: CDI. 5/5 motor both lower extremities Objective Labs Result Diagrams: 06/30/20 05:33 Labs: Laboratory Results - last 24 hr 06/30/20 05:33 Hgb 10.4 L Hct 31.3 L PFSH Medical History (Updated 06/23/20 @ 00:00 by ) Arthritis Heart murmur Lumbar stenosis Major depressive disorder, recurrent severe without psychotic features Spondylisthesis Surgical History (Updated 06/16/20 @ 10:06 by Monica Delgado RN) H/O wrist surgery H/O: hysterectomy Hx of bilateral cataract extraction Hx of hernia repair Social History household members: spouse Smoking Status: Never smoker alcohol intake: former Assessment & Plan Post-op Postoperative Procedures: Procedures Operation Date: 06/29/20 13:45 Actual Procedures Side Surgeon p L34, L45 laminectomies, L45 anterior/posterior instrumentated fusion w/ bone graft Charli Wilkes MD I gave her some Ativan to see if this will help with the nausea. We are going to start mobilizing this morning with physical therapy. Anticipate 1-2 more days in the hospital
--- NOTE | 2020-06-30 10:24 | PT.IIE ---
Current Diagnoses Spondylolisthesis, lumbar region (06/29/20) Spinal stenosis, lumbar region with neurogenic claudication (06/29/20) Strain of muscle, fascia and tendon of lower back, subsequent encounter (06/29/20) Surgery Performed Operation Date: 06/29/20 13:45 Actual Procedures p L34, L45 laminectomies, L45 anterior/posterior instrumentated fusion w/ bone graft - Charli Wilkes MD Surgical History (Last Updated 06/16/20 @ 10:06 by Monica Delgado RN) H/O wrist surgery H/O: hysterectomy Hx of bilateral cataract extraction Hx of hernia repair Medical History (Last Updated 06/16/20 @ 10:10 by Monica Delgado RN) Arthritis Heart murmur Lumbar stenosis Major depressive disorder, recurrent severe without psychotic features Spondylisthesis Physical Therapy Inpatient Evaluation/Re-Eval M1 PT/OT-IP Prior Functional Status Start: 06/30/20 12:32 Freq: NEEDED Status: Active Protocol: Document 06/30/20 12:32 CGR (Rec: 06/30/20 12:50 CGR [id number]) Medical Review Prior Functional Status Medical History Reviewed Yes Communication Pt is an effective verbal communicator. Mobility and Gait Pt was IND in all mobility and sometimes uses a hiking stick . Activities of Daily Living and IADL's Pt was IND in all ADLs Social History Household Members spouse Living Arrangements House Number of Floors (Floors) Two Floors Number of Stairs To Enter/Railing? Pt has no stairs to enter from the garage. Home Environment Standard Height Toilet,Walk in Shower Home Equipment Hand Held Shower Employment Status Retired Additional Social History Comment Pt has a hiking stick that she uses when needed. M1 PT/OT-IP Prior Functional Status Start: 06/30/20 12:54 Freq: NEEDED Status: Active Protocol: Document 06/30/20 10:24 AB (Rec: 06/30/20 13:09 AB [id number]) Medical Review Prior Functional Status Medical History Reviewed Yes Communication able to make needs known Mobility and Gait pt stated that she is independent with all mobilities and ambulation without AD but occasionally uses a hiking stick depending on pain. pt is still able to drive. Social History Household Members spouse Living Arrangements House Number of Floors (Floors) Two Floors Number of Stairs To Enter/Railing? no steps to enter and pt stays on main level of the house Home Environment Standard Height Toilet,Walk in Shower Home Equipment Four Wheel Walker,Hand Held Shower Employment Status Retired M2 PT-IP Current Condition Start: 06/30/20 12:54 Freq: NEEDED Status: Active Protocol: Document 06/30/20 10:24 AB (Rec: 06/30/20 13:09 AB [email or web address]) Physical Therapy Current Condition Current Condition Evaluation Date 06/30/20 Treatment Diagnosis s/p L4-5 anterior/post fusion; L3-5 lami; difficulty in walking Onset Date 06/29/20 Precautions Lumbar Precautions Log Roll,No Twisting,Limit Bending,Lifting Restriction of 10 lbs,Gait Belt above Incisional Area M3 PT-IP Subjective Start: 06/30/20 12:54 Freq: NEEDED Status: Active Protocol: Document 06/30/20 10:24 AB (Rec: 06/30/20 13:09 AB [email or web address]) Subjective Physical Therapy Visit Type Type Initial Evaluation Visit Start Time 10:24 Visit Stop Time 11:00 Total Visit Minutes 36 Number of EMERGENCY REGISTRAR Visits 0 Physical Therapy Visit Comments Patient Comments pt is agreeable to do PT Therapy Pain Assessment Pain When Pain Assessed At Rest Pain Present Pain Present Pain Reported Location Lower Back Intensity 2 Scale Used Numeric (0 - 10) Pain Management Techniques Distraction,Modification of Treatment,Re-positioning, Timing of Activity with Medications M4 PT-IP Mobility and Gait Start: 06/30/20 12:54 Freq: NEEDED Status: Active Protocol: Document 06/30/20 10:24 AB (Rec: 06/30/20 13:09 [email or web address]) PT-Bed Mobility Assessment Rolling Type of Rolling Log Rolling Level of Assist Maximal Assistance,1 Person Assistance Supine to Sit Supine to Sit Maximum Assistance,1 Person Assistance PT-Transfer Assessment Sit to and From Stand Sit to and from Stand Minimal Assistance,Moderate Assistance,1 Person Assistance ,Use of Upper Extremities Equipment Transfer Assistive Device Gait Belt,Front Wheeled Walker Orthotic/Prosthetic Devices or Brace: No Transfers Transfer Destination Chair Transfer Technique ambulated using FWW Transfer Ability Level of Assist Moderate Assistance,Use of Upper Extremities Comments Mobility Comments BP supine in bed with HOB elevated: 93/57. educated pt on back precautions and log roll bed mobility. completed supine to sit max A and cues. BP sitting on EOB: 114/54. pt is able to sit on EOB SBA and tolerate sitting well. BP checked again after ~ 2 min: 109/61. pt with difficulty following directions. completed sit to stand min to mod a and cues and ambulated using FWW ~ 12 ft to the chair mod A. pt requires assist with maneuvering of FWW and has slow responses to instructions. positioned pt on chair. call light and table placed within reach. BP checked: 106/62 sitting on chair after transfers. Gait Assessment Gait Gait Assistance Required: Moderate Assistance Distance (Feet) 12 Able to Maintain Weight Bearing Status Yes During Gait Assistive Devices Assistive Device Gait Belt,Front Wheeled Walker Orthotic/Prosthetic Devices or Brace: No Gait Deviations General Gait Pattern Decreased Stride Length, Decreased Feet Clearance Factors Limiting Gait Function Factors Limiting Gait Function Decreased Activity Tolerance, Decreased Strength,Difficulty Following Directions,Pain,Poor Balance,Poor Safety Awareness PT-Balance Assessment Sitting Balance and Reactions Static Sitting Balance Ability Good Dynamic Sitting Balance Ability Good Standing Balance and Reactions Static Standing Balance Ability Fair Dynamic Standing Balance Ability Fair Device Used FWW M5 PT-IP Objective Assessments Start: 06/30/20 12:54 Freq: NEEDED Status: Active Protocol: Document 06/30/20 10:24 AB (Rec: 06/30/20 13:09 AB [email or web address]) Orientation Orientation/Cognition Level of Alertness Alert Orientation Name,Age,Place,Situation Language Function Ability No Deficits Noted Safety Awareness Decreased Safety Awareness Memory Description Short Term Impaired Gross Range of Motion Lower Extremity ROM Assessment Within Functional Limits Strength Lower Extremity Strength Hip 4-/5 Knee 4-/5 Coordination Assessment Gross Coordination Gross Coordination WNL Sensation Assessment Sensation Gross Sensation WNL Muscle Tone Muscle Tone WNL Yes M6 PT-IP Treatment Start: 06/30/20 12:54 Freq: NEEDED Status: Active Protocol: Document 06/30/20 10:24 AB (Rec: 06/30/20 13:09 AB [email or web address]) Physical Therapy Treatment Education Education Provided Precautions,Weight Bearing Status,Post-Op Packet,Safety M7 PT-IP Assessment and Plan Start: 06/30/20 12:54 Freq: NEEDED Status: Active Protocol: Document 06/30/20 10:24 AB (Rec: 06/30/20 13:09 AB [email or web address]) PT Summary Assessment and Plan Potential Rehabilitation Potential Good Status of Condition at Evaluation Evolving Summary Impairments Pain,ROM,Strength,Balance, Coordination,Sensation,Tone, Cognition,Bed Mobility, Transfers,Gait,Activity Tolerance Assessment Summary pt requiring mod to max A with mobility. pt plans to go home and spouse to assist her. will conduct caregiver training when appropriate. will continue to assess progress. Goals Bed Mobility Goal Independent Transfer Goal Independent,Front Wheeled Walker Gait Goal Independent,Front Wheel Walker Gait Distance 200 Days to Meet Goals 5 Frequency of Treatment Frequency Of Treatment Twice a Day Treatment Plan Physical Therapy Treatment Plan Bed Mobility Training,Transfer Training,Gait Training, Therapeutic Exercise,Balance Retraining,Post Op Education, Discharge Planning,Hot or Cold Pack,Neuromuscular Re-ed, Coordination Retraining,Manual Therapy Recommendations To Nursing Amount of Assist Needed 1 Person Assist Discharge Recommendations PT Discharge Recommendations Home with Assistance Transportation Needs at Discharge Private Vehicle
--- NOTE | 2020-06-30 11:04 | OT.IP.EVAL ---
Current Diagnoses Spondylolisthesis, lumbar region (06/29/20) Spinal stenosis, lumbar region with neurogenic claudication (06/29/20) Strain of muscle, fascia and tendon of lower back, subsequent encounter (06/29/20) Surgery Performed Operation Date: 06/29/20 13:45 Actual Procedures p L34, L45 laminectomies, L45 anterior/posterior instrumentated fusion w/ bone graft - Charli Wilkes MD Past Medical History (Last Updated 06/16/20 @ 10:10 by Monica Delgado RN) Arthritis Heart murmur Lumbar stenosis Major depressive disorder, recurrent severe without psychotic features Spondylisthesis Surgical History (Last Updated 06/16/20 @ 10:06 by Monica Delgado RN) H/O wrist surgery H/O: hysterectomy Hx of bilateral cataract extraction Hx of hernia repair Occupational Therapy Inpatient Evaluation/Re-Eval M1 PT/OT-IP Prior Functional Status Start: 06/30/20 12:32 Freq: NEEDED Status: Active Protocol: Document 06/30/20 12:32 CGR (Rec: 06/30/20 12:50 CGR [email or web address]) Medical Review Prior Functional Status Medical History Reviewed Yes Communication Pt is an effective verbal communicator. Mobility and Gait Pt was IND in all mobility and sometimes uses a hiking stick . Activities of Daily Living and IADL's Pt was IND in all ADLs Social History Household Members spouse Living Arrangements House Number of Floors (Floors) Two Floors Number of Stairs To Enter/Railing? Pt has no stairs to enter from the garage. Home Environment Standard Height Toilet,Walk in Shower Home Equipment Hand Held Shower Employment Status Retired Additional Social History Comment Pt has a hiking stick that she uses when needed. M2 OT-IP Current Condition Start: 06/30/20 12:32 Freq: Status: Active Protocol: Document 06/30/20 12:32 CGR (Rec: 06/30/20 12:50 CGR [email or web address]) Occupational Therapy Current Condition Current Condition Evaluation Date 06/30/20 Treatment Diagnosis L3-5 lami Diagnosis Onset Date 06/29/20 Post Operative Precautions Lumbar Precautions Log Roll,No Twisting,Limit Bending,Lifting Restriction of 10 lbs,Gait Belt above Incisional Area M3 OT- IP Subjective and Pain Start: 06/30/20 12:32 Freq: Status: Active Protocol: Document 06/30/20 12:32 CGR (Rec: 06/30/20 12:50 CGR [email or web address]) OT- Subjective Occupational Therapy Visit Type Type Initial Evaluation Visit Start Time 10:34 Visit Stop Time 11:04 Total Visit Minutes 30 Notes Co-treat with P.T. OT Pain Assessment Pain When Pain Assessed At Rest Pain Present Pain Present Pain Reported Location Lower Back Intensity 1 Scale Used Numeric (0 - 10) Management Techniques Modification of Treatment,Re- positioning M4 OT- IP ADL's Start: 06/30/20 12:32 Freq: Status: Active Protocol: Document 06/30/20 12:32 CGR (Rec: 06/30/20 12:50 CGR [email or web address]) OT [id number] Comments OT Self-Feeding Comments Not meal time OT ADL-Grooming General Evaluation Grooming Ability Standby Assistance Areas Needing Assistance Retrieving/Set-up of Grooming Items,Combing/Brushing Hair, Face Washing Comments OT Grooming Comments seated in chair OT ADL-Oral Care General Eval Oral Care Ability Standby Assistance Areas of Assistance Brushing Teeth,Retrieving/Set- Up of Items Comments Oral Care Comments seated in chair OT ADL-Dressing General Eval Lower Body Dressing Ability Total Assistance Areas Needing Assistance Socks OT ADL-Toileting Comments OT Toileting Comments Not performed, pt with raffaele OT ADL-Bathing Comments OT Bathing Comments Not performed on this date M5 OT- IP IADL's Start: 06/30/20 12:32 Freq: Status: Active Protocol: Document 06/30/20 12:32 CGR (Rec: 06/30/20 12:50 CGR [email or web address]) OT-Instrumental Activities of Daily Living Deficits IADL Deficits Identified No Deficits Home Safety Awareness Awareness of Need for Assistance at Home Good Awareness Ability to Problem Solve Emergency Able to Problem Solve Situations Medication Management Medication Management No Deficits Identified Money Management Money Management No Deficits Identified Meal Preparation Meal Preparation Caregiver Provides Assist Guard Supervisor Guard Supervisor Caregiver Provides Assist Driving 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 OT- IP Functional Cognition Start: 06/30/20 12:32 Freq: Status: Active Protocol: Document 06/30/20 12:32 CGR (Rec: 06/30/20 12:50 CGR [email or web address]) Cognitive Factors Limiting Selfcare Function Cognitive Ability Level of Alertness Alert Patient Orientation Name,Age,Birthday,Month,Date, Year,Day of Week,Place, Situation Attention Span Ability Capable of Focused Attention, Capable of Sustained Attention Ability to Follow Commands Able to Follow One Step Commands with Increased Time, Able to Follow One Step Commands with Repetition OT- Vision and Hearing OT- Hearing Assessment OT- Hearing Assessment WFL OT- Vision Assessment Visual Acuity WFL Visual Attentiveness WFL Occular Pursuits WFL Visual Convergence WFL M7 OT- IP Mobility and Balance Start: 06/30/20 12:32 Freq: Status: Active Protocol: Document 06/30/20 12:32 CGR (Rec: 06/30/20 12:50 CGR [email or web address]) OT- Bed Mobility Assessment Rolling Type of Rolling Log Rolling,Roll to Left Level of Assistance Maximum Assistance,1 Person Assistance Supine to Sit Supine to Sit Assist Moderate Assistance,1 Person Assistance Scooting Scooting to Edge of Bed Contact Guard Assistance OT-Transfer Assessment Sit to and From Stand Sit to and from Stand Minimal Assistance,1 Person Assistance Transfers Transfer Ability Minimal Assistance,1 Person Assistance Technique Transfer Destination Bed,Chair Transfer Technique Stand Step Pivot Devices Transfer Assistive Devices Gait Belt,Front Wheeled Walker Comments Mobility Comments Pt ambulated around the bed. BPs taken throughout session with increased BP upon sitting . See P.T. note for BP. OT- Balance Assessment Sitting Balance and Reactions Static Sitting Balance Ability Good Dynamic Sitting Balance Ability Fair M8 OT- IP Objective Assessments Start: 06/30/20 12:32 Freq: Status: Active Protocol: Document 06/30/20 12:32 CGR (Rec: 06/30/20 12:50 CGR [email or web address]) OT Gross Range of Motion Upper Extremity Range of Motion Assessment Within Functional Limits OT Strength Upper Extremity Strength Assessment Within Functional Limits OT- Coordination Assessment Upper Extremity Finger to Nose Test Within Functional Limits Finger Tapping Test Within Functional Limits OT-Muscle Tone Assessment Muscle Tone WNL Yes OT Sensation Assessment Edema Edema Absent M9 OT- IP Assessment and Plan Start: 06/30/20 12:32 Freq: Status: Active Protocol: Document 06/30/20 12:32 CGR (Rec: 06/30/20 12:50 CGR [email or web address]) OT Summary Assessment and Plan Potential Rehabilitation Potential Good Analytic Complexity at Evaluation Low Summary OT Impairments Pain,Balance,Functional Mobility,Grooming,Dressing, Toileting,Bathing,Toilet Transfers,Shower Transfers, Activity Tolerance Progress Towards Goals Slow Progress due to Pain,Slow Progress due to Medical Issues Assessment Summary Pt presents as a low complexity evaluation s/p admit for L3-5 laminectomy. Pt is mobilizing well but with nausea and low BP. Pt will benefit from continued therapy services. Recommend d/c to home when medically stable. Goals Grooming Goal Independent Dressing Goal Independent Toileting Goal Independent Bathing Goal Independent Toilet Transfer Goal Independent Shower Transfer Goal Independent Days to Meet Goals 3 Frequency of Treatment Frequency Of Treatment Once a Day Treatment Plan OT Treatment Plan ADL Training,Functional Mobility,Patient/Family Education,Discharge Planning Other Treatment Recommendations and Next shower and LB dressing Treatment Focus Discharge Recommendations OT Discharge Recommendations Home,Home with Assistance Transportation Needs at Discharge Private Vehicle
--- NOTE | 2020-06-30 14:31 | CM.IDA ---
Initial DCP Assessment Note Pt is a 70 yo female, resident of [place], now POD#1 from spinal surgery w/ Dr Wilkes PCP: Mamta Boudreaux Payer: [facility]/[place] Reviewed chart, pt discussed in multidisciplinary rounds this morning. Therapy has cleared pt for return home w/spouse to assist and pt has planned for home. No needs expected from DC planning team although will remain available in case this changes before DC. NHAN Nuñez
--- NOTE | 2020-06-30 14:58 | PT-IP ANOTE ---
Attempted to see pt on 14:58, pt refused therapy stating she is nauseous and light headed, but willing to try PT tomorrow AM.
[2020-06-30] MEDS: lamoTRIgine 100 MG TABLET 200 MG PO (21:27)
[2020-06-30] MEDS: SENNOSIDES 8.6 MG TABLET 17.2 MG PO (21:27)
[2020-06-30] MEDS: LITHIUM 150 MG IR CAPSULE 450 MG PO (21:27)
[2020-06-30] MEDS: SODIUM CHLORIDE 0.9% FLUSH 10 ML IV (21:31)
[2020-06-30] MEDS: BISACODYL 10 MG SUPP PR (21:53)
--- NOTE | 2020-06-30 22:55 | PC.NURSE ---
Pt in little to no pain through shift. Slightly hypotensive, otherwise VSS, afebrile. Nausea through shift, culminating in emesis 50 mL w/ nighttime medication (including psych) present in emesis bag. Able to ambulate w/ walker. Morales cath for urine, draining well. Epidural still affecting back. Dressing intact, slight drainage, serous. +CSM all extremities.
[2020-07-01 00:25] VITALS: BP 114/68; PULSE 78; RESP 16; TEMP 36.1; O2SAT 100
[2020-07-01] MEDS: LORazepam 2 MG/ML INJ 0.5 MG IV ×2 (01:03→11:38)
[2020-07-01] MEDS: SODIUM CHLORIDE 0.9% FLUSH 10 ML IV ×3 (01:03→11:40)
--- NOTE | 2020-07-01 01:27 | PC.NURSE ---
Requested Lorazepam 0.5 mg. IVP for nausea. No emesis noted, requested MOM for constipation. Not given at this time she's using the BSC & having BM. Will cont. POC & monitor.
[2020-07-01 04:50] VITALS: BP 134/80; PULSE 77; RESP 16; TEMP 37; O2SAT 99
[2020-07-01] MEDS: OXYCODONE/ACETAMINOPHEN 5/325 TABLET 1 TAB PO (04:54)
[2020-07-01 08:00] VITALS: BP 126/78; PULSE 75; RESP 15; TEMP 36.4; O2SAT 95
--- NOTE | 2020-07-01 08:22 | PM.PNPO.1 ---
Subjective Subjective Date Patient Seen: 07/01/20 Time Patient Seen: 08:23 Interval history: Still very nauseated but not vomiting. Feels just lethargic. Exam Vital Signs (past 8 hours): - 07/01/20 00:25 07/01/20 04:50 07/01/20 08:00 Temperature 97.0 F L 98.6 F 97.5 F L Pulse Rate 78 77 75 Respiratory Rate 16 16 15 Blood Pressure 114/68 134/80 126/78 Pulse Oximetry 100 99 95 Oxygen Delivery Method Room Air Oxygen Flow Rate 0 Const Orientation: alert and oriented x3 Back/Spine/Pelvis Other: CDI. 5/5 motor both lower extremities. Objective Labs Result Diagrams: 06/30/20 05:33 PFSH Medical History (Updated 06/23/20 @ 00:00 by ) Arthritis Heart murmur Lumbar stenosis Major depressive disorder, recurrent severe without psychotic features Spondylisthesis Surgical History (Updated 06/16/20 @ 10:06 by Monica Delgado RN) H/O wrist surgery H/O: hysterectomy Hx of bilateral cataract extraction Hx of hernia repair Social History household members: spouse Smoking Status: Never smoker alcohol intake: former Assessment & Plan Post-op Postoperative Procedures: Procedures Operation Date: 06/29/20 13:45 Actual Procedures Side Surgeon p L34, L45 laminectomies, L45 anterior/posterior instrumentated fusion w/ bone graft Charli Wilkes MD She has been setback over a day because of her nausea and vomiting but we are going to get her up with PT today. Anticipate discharge home tomorrow. I will try some steroids as well for the nausea.
[2020-07-01] MEDS: DOCUSATE 100 MG CAPSULE PO (08:24)
[2020-07-01] MEDS: CELECOXIB 200 MG CAPSULE PO (08:24)
--- NOTE | 2020-07-01 09:19 | PT.IPTN ---
Current Diagnoses Spondylolisthesis, lumbar region (06/29/20) Spinal stenosis, lumbar region with neurogenic claudication (06/29/20) Strain of muscle, fascia and tendon of lower back, subsequent encounter (06/29/20) Surgery Performed Operation Date: 06/29/20 13:45 Actual Procedures p L34, L45 laminectomies, L45 anterior/posterior instrumentated fusion w/ bone graft - Charli Wilkes MD Physical Therapy Treatment Note M2 PT-IP Current Condition Start: 06/30/20 12:54 Freq: NEEDED Status: Active Protocol: Document 06/30/20 10:24 AB (Rec: 06/30/20 13:09 AB [email or web address]) Physical Therapy Current Condition Current Condition Evaluation Date 06/30/20 Treatment Diagnosis s/p L4-5 anterior/post fusion; L3-5 lami; difficulty in walking Onset Date 06/29/20 Precautions Lumbar Precautions Log Roll,No Twisting,Limit Bending,Lifting Restriction of 10 lbs,Gait Belt above Incisional Area M3 PT-IP Subjective Start: 06/30/20 12:54 Freq: NEEDED Status: Active Protocol: Document 07/01/20 09:19 AB (Rec: 07/01/20 11:16 AB [email or web address]) Subjective Physical Therapy Visit Type Type Treatment Note Visit Start Time 09:19 Visit Stop Time 10:01 Total Visit Minutes 42 Number of PRINT WASHER Visits 0 Physical Therapy Visit Comments Patient Comments pt is agreeable to do PT Therapy Pain Assessment Pain When Pain Assessed At Rest Pain Present Pain Present Pain Reported Location Lower Back Intensity 2 Scale Used Numeric (0 - 10) Description Aching Pain Management Techniques Distraction,Modification of Treatment,Re-positioning, Timing of Activity with Medications M4 PT-IP Mobility and Gait Start: 06/30/20 12:54 Freq: NEEDED Status: Active Protocol: Document 07/01/20 09:19 AB (Rec: 07/01/20 11:16 AB [email or web address]) PT-Bed Mobility Assessment Rolling Type of Rolling Log Rolling Level of Assist Standby Assistance Supine to Sit Supine to Sit Standby Assistance Sit to Supine Sit to Supine Standby Assistance PT-Transfer Assessment Sit to and From Stand Sit to and from Stand Standby Assistance Equipment Transfer Assistive Device Gait Belt,Front Wheeled Walker Orthotic/Prosthetic Devices or Brace: No Transfers Transfer Destination Bed,Chair Transfer Technique ambulated using FWW Transfer Ability Level of Assist Standby Assistance Comments Mobility Comments pt standing up by the sink SBA with NAC while brushing her teeth. PT took over. pt ambulated towards the chair. reviewed back precautions. pt required cues to recall. pt is more alert but continues to have memory issues. pt ambulated from the chair to the bed using FWW SBA. pt with uncontrolled descent to the bed with posterior trunk LOB requiring min A for safety . educated pt on trunk control and positioning. completed log roll bed mobility supine<>sit SBA but with max cues. repeated x 6 and pt continues to require cues and unable to adhere to back precautions. pt ambulated in room ~ 40 ft x 2 using fWW SBA. pt agreed to stay up on chair. positioned on chair. call light and table placed wtihin reach. set up caregiver training with spouse at 1pm later today. Gait Assessment Gait Gait Assistance Required: Standby Assistance Distance (Feet) 40 Able to Maintain Weight Bearing Status Yes During Gait Assistive Devices Assistive Device Gait Belt,Front Wheeled Walker Orthotic/Prosthetic Devices or Brace: No Gait Deviations General Gait Pattern Decreased Stride Length, Decreased Feet Clearance Factors Limiting Gait Function Factors Limiting Gait Function Decreased Activity Tolerance, Decreased Strength,Difficulty Following Directions,Limited Range of Motion,Pain,Poor Balance,Poor Safety Awareness M5 PT-IP Objective Assessments Start: 06/30/20 12:54 Freq: NEEDED Status: Active Protocol: Document 06/30/20 10:24 AB (Rec: 06/30/20 13:09 AB [email or web address]) Orientation Orientation/Cognition Level of Alertness Alert Orientation Name,Age,Place,Situation Language Function Ability No Deficits Noted Safety Awareness Decreased Safety Awareness Memory Description Short Term Impaired Gross Range of Motion Lower Extremity ROM Assessment Within Functional Limits Strength Lower Extremity Strength Hip 4-/5 Knee 4-/5 Coordination Assessment Gross Coordination Gross Coordination WNL Sensation Assessment Sensation Gross Sensation WNL Muscle Tone Muscle Tone WNL Yes M6 PT-IP Treatment Start: 06/30/20 12:54 Freq: NEEDED Status: Active Protocol: Document 07/01/20 09:19 AB (Rec: 07/01/20 11:16 AB [email or web address]) Physical Therapy Treatment Education Education Provided Precautions,Safety M7 PT-IP Assessment and Plan Start: 06/30/20 12:54 Freq: NEEDED Status: Active Protocol: Document 07/01/20 09:19 AB (Rec: 07/01/20 11:16 AB [email or web address]) PT Summary Assessment and Plan Potential Rehabilitation Potential Good Summary Impairments Pain,ROM,Strength,Balance, Coordination,Sensation,Tone, Cognition,Bed Mobility, Transfers,Gait,Activity Tolerance Progress Towards Goals Slow Progress - Other Assessment Summary pt is progressing with mobility but continues to require cues for safety and to maintain back precautions. pt has memory issues and required cues for techniques and safety. caregiver training set up today at 1pm with pt and spouse. will continue to assess progress. Goals Bed Mobility Goal Independent Transfer Goal Independent,Front Wheeled Walker Gait Goal Independent,Front Wheel Walker Gait Distance 200 Days to Meet Goals 5 Frequency of Treatment Frequency Of Treatment Twice a Day Treatment Plan Physical Therapy Treatment Plan Bed Mobility Training,Transfer Training,Gait Training, Therapeutic Exercise,Balance Retraining,Post Op Education, Discharge Planning,Hot or Cold Pack,Neuromuscular Re-ed, Coordination Retraining,Manual Therapy Recommendations To Nursing Amount of Assist Needed 1 Person Assist Discharge Recommendations PT Discharge Recommendations Home with Assistance Transportation Needs at Discharge Private Vehicle
[2020-07-01] MEDS: DEXAMETHASONE 10 MG/ML VIAL IV (10:01)
[2020-07-01] MEDS: MAGNESIUM CITRATE 300 ML SOLUTION 150 ML PO (10:02)
[2020-07-01] MEDS: TRAMADOL 50 MG TABLET PO (10:06)
--- NOTE | 2020-07-01 11:38 | OT.IP.TRT ---
Current Diagnoses Spondylolisthesis, lumbar region (06/29/20) Spinal stenosis, lumbar region with neurogenic claudication (06/29/20) Strain of muscle, fascia and tendon of lower back, subsequent encounter (06/29/20) Surgery Performed Operation Date: 06/29/20 13:45 Actual Procedures p L34, L45 laminectomies, L45 anterior/posterior instrumentated fusion w/ bone graft - Charli Wilkes MD Occupational Therapy Treatment Note M2 OT-IP Current Condition Start: 06/30/20 12:32 Freq: Status: Active Protocol: Document 06/30/20 12:32 CGR (Rec: 06/30/20 12:50 CGR [email or web address]) Occupational Therapy Current Condition Current Condition Evaluation Date 06/30/20 Treatment Diagnosis L3-5 lami Diagnosis Onset Date 06/29/20 Post Operative Precautions Lumbar Precautions Log Roll,No Twisting,Limit Bending,Lifting Restriction of 10 lbs,Gait Belt above Incisional Area M3 OT- IP Subjective and Pain Start: 06/30/20 12:32 Freq: Status: Active Protocol: Document 07/01/20 11:48 CGR (Rec: 07/01/20 12:00 CGR [email or web address]) OT- Subjective Occupational Therapy Visit Type Type Progress Note Visit Start Time 10:45 Visit Stop Time 11:38 Total Visit Minutes 53 Notes Pt vomiting at end of session. Nursing notified. OT Pain Assessment Pain When Pain Assessed During Mobility Pain Present Pain Present Pain Reported Location Lower Back Scale Used did not rate but says minimal pain Management Techniques Distraction,Modification of Treatment,Re-positioning M4 OT- IP ADL's Start: 06/30/20 12:32 Freq: Status: Active Protocol: Document 07/01/20 11:48 CGR (Rec: 07/01/20 12:00 CGR [email or web address]) OT [id number] Comments OT Self-Feeding Comments Not performed OT ADL-Grooming Comments OT Grooming Comments Pt just performed with nursing . OT ADL-Oral Care Comments Oral Care Comments Pt just performed with nursing . OT ADL-Dressing General Eval Upper Body Dressing Ability Independent Lower Body Dressing Ability Standby Assistance Areas Needing Assistance Retrieving/Set-up of Clothing, Pull-Over Shirt,Pants/Shorts, Socks,Shoes Comments OT Dressing Comments Pt was able to perform dressing without physical help by bringin her ankle up to her knee. Pt reports no stretching to her back with these activities. OT ADL-Toileting General Evaluation Toileting Ability Independent Comments OT Toileting Comments Pt in bathroom when OT entered . OT ADL-Bathing Comments OT Bathing Comments Pt just performed with nursing . M5 OT- IP IADL's Start: 06/30/20 12:32 Freq: Status: Active Protocol: Document 06/30/20 12:32 CGR (Rec: 06/30/20 12:50 CGR [email or web address]) OT-Instrumental Activities of Daily Living Deficits IADL Deficits Identified No Deficits Home Safety Awareness Awareness of Need for Assistance at Home Good Awareness Ability to Problem Solve Emergency Able to Problem Solve Situations Medication Management Medication Management No Deficits Identified Money Management Money Management No Deficits Identified Meal Preparation Meal Preparation Caregiver Provides Assist Shale Miner Shale Miner Caregiver Provides Assist Driving Driving Comments 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 OT- IP Functional Cognition Start: 06/30/20 12:32 Freq: Status: Active Protocol: Document 07/01/20 11:48 CGR (Rec: 07/01/20 12:00 CGR [email or web address]) Cognitive Factors Limiting Selfcare Function Cognitive Ability Level of Alertness Alert Patient Orientation Name,Age,Birthday,Month,Date, Year,Day of Week,Place, Situation Attention Span Ability Capable of Focused Attention, Capable of Sustained Attention Ability to Follow Commands Able to Follow One Step Commands with Increased Time, Able to Follow One Step Commands with Repetition Memory Description Immediate Impaired,Short Term Impaired,Working Impaired Safety Awareness Decreased Recall of Precautions,Decreased Ability to Apply Precautions Cognitive Comments Cognitive Assessment Comments Pt with noted memory deficits seen with bed mobility training. OT- Vision and Hearing OT- Hearing Assessment OT- Hearing Assessment WFL OT- Vision Assessment Visual Acuity WFL Visual Attentiveness WFL Occular Pursuits WFL Visual Convergence WFL M7 OT- IP Mobility and Balance Start: 06/30/20 12:32 Freq: Status: Active Protocol: Document 07/01/20 11:48 CGR (Rec: 07/01/20 12:00 CGR [email or web address]) OT- Bed Mobility Assessment Rolling Type of Rolling Log Rolling Level of Assistance Minimal Assistance Supine to Sit Supine to Sit Assist Minimal Assistance Sit to Supine Sit to Supine Assist Minimal Assistance Scooting Scooting to Edge of Bed Standby Assistance OT-Transfer Assessment Sit to and From Stand Sit to and from Stand Standby Assistance Transfers Transfer Ability Standby Assistance Technique Transfer Destination Bed,Chair,Toilet Transfer Technique Stand Step Pivot Devices Transfer Assistive Devices Gait Belt,Front Wheeled Walker Comments Mobility Comments Pt ambualted around the room for activities and performed bed mobility ~8 times with moderate verbal cues to maintain back precautions. Pt is unable to correctly remember sequencing. Handout was created for specific steps for log roll and provided to patient. Discussed with P.T. who will perform family training this afternoon with help of additional handout. OT- Gait Assessment Gait Gait Assistance Required: Standby Assistance Assistive Devices Assistive Device Gait Belt,Front Wheeled Walker OT- Balance Assessment Sitting Balance and Reactions Static Sitting Balance Ability Good Dynamic Sitting Balance Ability Good M8 OT- IP Objective Assessments Start: 06/30/20 12:32 Freq: Status: Active Protocol: Document 06/30/20 12:32 CGR (Rec: 06/30/20 12:50 CGR [email or web address]) OT Gross Range of Motion Upper Extremity Range of Motion Assessment Within Functional Limits OT Strength Upper Extremity Strength Assessment Within Functional Limits OT- Coordination Assessment Upper Extremity Finger to Nose Test Within Functional Limits Finger Tapping Test Within Functional Limits OT-Muscle Tone Assessment Muscle Tone WNL Yes OT Sensation Assessment Edema Edema Absent M9 OT- IP Assessment and Plan Start: 06/30/20 12:32 Freq: Status: Active Protocol: Document 07/01/20 11:48 CGR (Rec: 07/01/20 12:00 CGR [email or web address]) OT Summary Assessment and Plan Potential Rehabilitation Potential Good Analytic Complexity at Evaluation Low Summary OT Impairments Pain,Balance,Functional Mobility,Grooming,Dressing, Toileting,Bathing,Toilet Transfers,Shower Transfers, Activity Tolerance Progress Towards Goals Slow Progress due to Pain,Slow Progress due to Medical Issues Assessment Summary Pt presents as a low complexity evaluation s/p admit for L3-5 laminectomy. Pt demonstrates difficulty with memory of precautions. Pt will benefit from continued therapy services. P.T. plans to perform family training today and pt is planned for discharge home today. Goals Grooming Goal Independent Dressing Goal Independent Toileting Goal Independent Bathing Goal Independent Toilet Transfer Goal Independent Shower Transfer Goal Independent Days to Meet Goals 3 Frequency of Treatment Frequency Of Treatment Once a Day Treatment Plan OT Treatment Plan ADL Training,Functional Mobility,Patient/Family Education,Discharge Planning Other Treatment Recommendations and Next shower Treatment Focus Discharge Recommendations OT Discharge Recommendations Home,Home with Assistance Transportation Needs at Discharge Private Vehicle
--- NOTE | 2020-07-01 11:44 | PC.NURSE ---
Addendum entered by Melissa Hopper R.N. 07/01/20 14:14: Patient is ready for discharge. All discharge teaching done regarding medications, diet, activity, ss of infection, ss of stroke,fall prevention, and follow up care. Patient and acknowledged understanding of all discharge teaching. Patient left facility with paper prescriptions. Patient left facility with all belongings and via wheelchair to private vehicle. Original Note: Patient had no nausea this AM until she drank the mag citrate. Patient had 100cc of emesis out. Patient states that she feels better now, and is not nauseated. Back pain level 2/10, patient using Tramadol for pain and it is well controlled. Dressing changed on incision, coversite applied. Incision has no s/s of infection.
--- NOTE | 2020-07-01 13:09 | PT.IPTN ---
Current Diagnoses Spondylolisthesis, lumbar region (06/29/20) Spinal stenosis, lumbar region with neurogenic claudication (06/29/20) Strain of muscle, fascia and tendon of lower back, subsequent encounter (06/29/20) Surgery Performed Operation Date: 06/29/20 13:45 Actual Procedures p L34, L45 laminectomies, L45 anterior/posterior instrumentated fusion w/ bone graft - Charli Wilkes MD Physical Therapy Treatment Note M2 PT-IP Current Condition Start: 06/30/20 12:54 Freq: NEEDED Status: Discharge Protocol: Document 06/30/20 10:24 AB (Rec: 06/30/20 13:09 AB [email or web address]) Physical Therapy Current Condition Current Condition Evaluation Date 06/30/20 Treatment Diagnosis s/p L4-5 anterior/post fusion; L3-5 lami; difficulty in walking Onset Date 06/29/20 Precautions Lumbar Precautions Log Roll,No Twisting,Limit Bending,Lifting Restriction of 10 lbs,Gait Belt above Incisional Area M3 PT-IP Subjective Start: 06/30/20 12:54 Freq: NEEDED Status: Discharge Protocol: Document 07/01/20 13:09 AB (Rec: 07/01/20 14:50 AB [email or web address]) Subjective Physical Therapy Visit Type Type Treatment Note Visit Start Time 13:09 Visit Stop Time 13:42 Total Visit Minutes 33 Number of MACHINE FORMER Visits 0 Physical Therapy Visit Comments Patient Comments agreeable to do PT M4 PT-IP Mobility and Gait Start: 06/30/20 12:54 Freq: NEEDED Status: Discharge Protocol: Document 07/01/20 13:09 AB (Rec: 07/01/20 14:50 AB [email or web address]) PT-Bed Mobility Assessment Rolling Type of Rolling Log Rolling Level of Assist Standby Assistance Supine to Sit Supine to Sit Standby Assistance Sit to Supine Sit to Supine Standby Assistance PT-Transfer Assessment Sit to and From Stand Sit to and from Stand Standby Assistance Equipment Transfer Assistive Device Gait Belt,Front Wheeled Walker Orthotic/Prosthetic Devices or Brace: No Transfers Transfer Destination Toilet Transfer Technique ambulated using FWW Transfer Ability Level of Assist Standby Assistance Comments Mobility Comments caregiver training conducted. educated spouse on pt's back precautions and log roll bed mobility. pt completed log roll supine <>sit SBA but with cues for safety. pt continues to have difficulty recalling techniques and unable to follow back precautions. Spouse initially was also unable to cue pt appropriately. repeated bed mobility x 4 reps. pt ambulated in room using FWW SBA and then requested to use the toilet and completed SBA. spouse was given written instructions on how to cue pt. pt completed bed mobility supine <>sit again with spouse instructing. educated spouse on how to use safety belt and how to assist pt with ambulation and completed safely. pt requested to rest in bed afterwards. completed sit to supine SBA and cues. positioned in bed. call light and table placed within reach . Gait Assessment Gait Gait Assistance Required: Standby Assistance Distance (Feet) 40 Able to Maintain Weight Bearing Status Yes During Gait Assistive Devices Assistive Device Gait Belt Orthotic/Prosthetic Devices or Brace: No Gait Deviations General Gait Pattern Decreased Stride Length, Decreased Feet Clearance Factors Limiting Gait Function Factors Limiting Gait Function Decreased Activity Tolerance, Decreased Strength,Difficulty Following Directions,Limited Range of Motion,Pain,Poor Balance,Poor Safety Awareness M5 PT-IP Objective Assessments Start: 06/30/20 12:54 Freq: NEEDED Status: Discharge Protocol: Document 06/30/20 10:24 AB (Rec: 06/30/20 13:09 AB [email or web address]) Orientation Orientation/Cognition Level of Alertness Alert Orientation Name,Age,Place,Situation Language Function Ability No Deficits Noted Safety Awareness Decreased Safety Awareness Memory Description Short Term Impaired Gross Range of Motion Lower Extremity ROM Assessment Within Functional Limits Strength Lower Extremity Strength Hip 4-/5 Knee 4-/5 Coordination Assessment Gross Coordination Gross Coordination WNL Sensation Assessment Sensation Gross Sensation WNL Muscle Tone Muscle Tone WNL Yes M6 PT-IP Treatment Start: 06/30/20 12:54 Freq: NEEDED Status: Discharge Protocol: Document 07/01/20 13:09 AB (Rec: 07/01/20 14:50 AB [id number]) Physical Therapy Treatment Education Education Provided Precautions,Post-Op Packet, Safety M7 PT-IP Assessment and Plan Start: 06/30/20 12:54 Freq: NEEDED Status: Discharge Protocol: Document 07/01/20 13:09 AB (Rec: 07/01/20 14:50 AB [id number]) PT Summary Assessment and Plan Potential Rehabilitation Potential Good Summary Impairments Pain,ROM,Strength,Balance, Coordination,Cognition,Bed Mobility,Transfers,Gait, Activity Tolerance Progress Towards Goals Slow Progress - Other Assessment Summary caregiver training conducted and spouse was able to assist pt with handout/visual aid provided. pt may go home with assist. Goals Bed Mobility Goal Independent Transfer Goal Independent,Front Wheeled Walker Gait Goal Independent,Front Wheel Walker Gait Distance 200 Days to Meet Goals 5 Frequency of Treatment Frequency Of Treatment Twice a Day Treatment Plan Physical Therapy Treatment Plan Bed Mobility Training,Transfer Training,Gait Training, Therapeutic Exercise,Balance Retraining,Post Op Education, Discharge Planning,Hot or Cold Pack,Neuromuscular Re-ed, Coordination Retraining,Manual Therapy Recommendations To Nursing Amount of Assist Needed 1 Person Assist Discharge Recommendations PT Discharge Recommendations Home with Assistance Transportation Needs at Discharge Private Vehicle
--- NOTE | 2020-07-01 13:53 | PM.DS.1 ---
History of Present Illness History of Present Illness Date Patient Seen: 07/01/20 Time Patient Seen: 08:31 Chief complaint: Translaminar Interbody Fusion/Laminotomy Narrative: 70 year old female with intractable radiculopathy from stenosis. Discharge Providers Provider Date of admission: 06/29/20 12:08 Discharge Date: 07/01/20 Primary care physician: Mamta Boudreaux PA-C Consults: 06/29/20 18:33 Consult to Occupational Therapy Evaluate & Treat Comment: Physician Instructions: Evaluate and treat Consult to Physical Therapy Evaluate & Treat Comment: Physician Instructions: Evaluate and Treat Discharge provider: Charli Wilkes MD Summary Hospital Course Discharge Diagnosis: lumbar stenosis and spondylolisthesis Hospital Course: She was admitted for a L3-5 laminectomy with L45 anterior/posterior fusion (XLIF) on 06/29/20. She had good pain relief but extreme nausea and vomiting the first day. This gradually improved with medication. The second postop day she was still nauseated but much better and up and moving with PT. She felt stable and wanted to go home. Status at Discharge Cognitive/behavioral status at discharge: oriented Functional status at discharge: independent ambulation Overall status at discharge: patient is progressing back to baseline Exam Vital Signs (past 8 hours): - 07/01/20 08:00 Temperature 97.5 F L Pulse Rate 75 Respiratory Rate 15 Blood Pressure 126/78 Pulse Oximetry 95 Oxygen Delivery Method Room Air Oxygen Flow Rate 0 Const Orientation: alert and oriented x3 Back/Spine/Pelvis Other: CDI 5/5 motor BLE Objective Labs Result Diagrams: 06/30/20 05:33 PFSH Medical History (Updated 06/23/20 @ 00:00 by ) Arthritis Heart murmur Lumbar stenosis Major depressive disorder, recurrent severe without psychotic features Spondylisthesis Surgical History (Updated 06/16/20 @ 10:06 by Monica Delgado RN) H/O wrist surgery H/O: hysterectomy Hx of bilateral cataract extraction Hx of hernia repair Social History household members: spouse Smoking Status: Never smoker alcohol intake: former Discharge Assessment & Plan Assessment and Plan Assessment: s/p lami/fusion Plan of Treatment: dc home Discharge Plan Discharge Plan Patient Disposition: Home Provider Discharge Comment: Follow-up 1.5 weeks Discharge orders & Medications Prescriptions: New docusate sodium [DOK] 100 mg Capsule 100 mg PO BID PRN (Reason: constipation) Qty: 30 RF: 0 hydrocodone-acetaminophen 10-325 mg Tablet 1 tab PO Q4HR PRN (Reason: Pain, Moderate (4-6)) Qty: 30 RF: 0 Continued hydroxyzine HCl 50 mg tablet 100 mg PO BEDTIME Qty: 180 RF: 3 prazosin 1 mg capsule 3 mg PO BEDTIME Qty: 90 RF: 1 gabapentin 100 mg capsule 300 mg PO BID Qty: 120 RF: 1 lithium carbonate 300 mg tablet 450 mg PO BEDTIME Qty: 135 RF: 2 lamotrigine 100 mg tablet 200 mg PO BEDTIME RF: 0 lorazepam 1 mg Tablet 0.5 mg PO BEDTIME PRN (Reason: Sleep) RF: 0 Follow up/Referrals: Mamta Boudreaux PA-C [Primary Care Provider] - Discharge Health Status Multidrug resistant organism: No MDRO Diet/Activity/Treatments Diet: Diet as Tolerated Activity: Limited bending, twisting, 10 lb maximum lifting Skin/Wound/Dressing Care Report to your healthcare provider any signs of infection, such as:: chills, fever, night sweats, increased pain, unusual drainage and unusual redness Dressing: You may shower over the dressing for the 1st 5 days. On Friday, you may remove the dressing and shower over the incision. Please replace this with a clean dressing when done Visit Report/Discharge Packet Instructions: DI for Laminectomy, DI for Prescription Opioid Use, DI for Lateral Lumbar Interbody Fusion Stand Alone Forms: Surgery Discharge Discharge Data Primary Care Provider: Mamta Boudreaux
== END 2020-07-01 14:20 | disposition home or self-care (01) | DRG 455 ==
PROVIDERS: Admitting Provider Orthopaedic Surgery; PCP Physician Assistant; Referring Provider Physician Assistant; Visit Provider Orthopaedic Surgery
PROC: 0SG00A0 Fusion of Lumbar Vertebral Joint with Interbody Fusion Device, Anterior Approach, Anterior Column, Open Approach (ICD-10-PCS; CPT 22558; principal; 2020-06-29 13:45)
DX: M48.062 Spinal stenosis, lumbar region with neurogenic claudication (principal); M41.26 Other idiopathic scoliosis, lumbar region; M43.16 Spondylolisthesis, lumbar region; F32.9 Major depressive disorder, single episode, unspecified; R11.2 Nausea with vomiting, unspecified; Z11.59 Encounter for screening for other viral diseases
CPT/HCPCS: 36415; 72100; 76000; 82962; 85014; 85018; 87635; 94762; 97116; 97162; 97165; 97530; 97535; C1776; J0330; J0595; J0690; J1100; J1170; J2060; J2274; J2405; J2704; J3010

== ENCOUNTER → 2020-10-04 15:15 | Outpatient (CLI) | payer MEDICARE, SELFPAY ==
[2020-06-29 18:40] VITALS: BMI 22.4
--- NOTE | 2020-10-04 15:17 | DI.MG.S_ITS ---
BILATERAL DIGITAL SCREENING MAMMOGRAM 3D/2D WITH CAD: 10/04/2020 CLINICAL: Routine screening. Family history of breast cancer. Comparison is made to exams dated: 10/14/2018 mammogram, 09/26/2017 mammogram, and 09/12/2016 mammogram - [facility]. There are scattered fibroglandular elements in both breasts. Current study was also evaluated with a Computer Aided Detection (CAD) system. There are benign calcifications in the right breast. No significant masses, calcifications, or other findings are seen in either breast. There has been no significant interval change. IMPRESSION: BENIGN There is no mammographic evidence of malignancy. A 1 year screening mammogram is recommended. This exam was interpreted at Station ID: [id number]. NOTE: For mammograms, a report in lay terms will be sent to the patient. Approximately 15% of breast malignancies will not be visualized mammographically. In the management of a palpable breast mass, a negative mammogram must not discourage biopsy of a clinically suspicious lesion. Electronically Signed By: Nicolas Ashley M.D., jr/shekhar:10/04/2020 15:58:35 letter sent: Normal Exam ACR BI-RADS Category 2: Benign Finding(s) 3342F
== END ==
PROVIDERS: PCP Physician Assistant; Referring Provider Physician Assistant; Visit Provider Physician Assistant
DX: Z12.31 Encounter for screening mammogram for malignant neoplasm of breast (principal); Z80.3 Family history of malignant neoplasm of breast
CPT/HCPCS: 77063; 77067

== ENCOUNTER → 2021-04-23 09:13 | Outpatient (CLI) | payer MEDICARE, SELFPAY ==
[2020-06-29 18:40] VITALS: BMI 22.4
[2021-04-23 10:19] LABS: Alanine Aminotransferase 25 IU/L (<35); Albumin 4.4 g/dL (3.5-5.0); Albumin Globulin Ratio 1.7 (1.0-2.8); Alkaline Phosphatase 72 U/L (38-126); Aspartate Aminotransferase 34 IU/L (14-36); BUN Creatinine Ratio 23.5 (6-22); Bilirubin Total 0.6 mg/dL (0.2-1.3); Blood Urea Nitrogen 19 mg/dL (7-17); Calcium 9.9 mg/dL (8.4-10.2); Carbon Dioxide 30 mmol/L (22-32); Chloride 106 mmol/L (98-107); Estimated Glomerular Filt Rate > 60.0 mL/min (>60); Globulin 2.6 g/dL (1.7-4.1); Glucose 96 mg/dL (80-110); HEMOLYSIS < 15 (0-50); Potassium 4.4 mmol/L (3.4-5.1); Sodium 140 mmol/L (137-145)
[2021-04-23 10:25] LABS: Lithium 0.5 mmol/L (0.6-1.2)
[2021-04-25 16:16] LABS: Lamotrigine Lamictal 6.7 ug/mL (2.0-20.0)
== END ==
PROVIDERS: PCP Physician Assistant; Referring Provider Psychiatry & Neurology Psychiatry; Visit Provider Psychiatry & Neurology Psychiatry
DX: F33.2 Major depressive disorder, recurrent severe without psychotic features (principal); Z79.899 Other long term (current) drug therapy
CPT/HCPCS: 36415; 80053; 80175; 80178

== ENCOUNTER → 2021-12-17 10:16 | Outpatient (CLI) | payer MEDICARE, SELFPAY ==
[2020-06-29 18:40] VITALS: BMI 22.4
--- NOTE | 2021-12-17 | DI.MG.S_ITS ---
BILATERAL DIGITAL SCREENING MAMMOGRAM 3D/2D WITH CAD: 12/17/2021 CLINICAL: Routine screening. Family history of breast cancer. Comparison is made to exams dated: 10/04/2020 mammogram, 10/14/2018 mammogram, and 09/26/2017 mammogram - [facility]. The tissue of both breasts is predominantly fatty. Current study was also evaluated with a Computer Aided Detection (CAD) system. There are benign calcifications in the right breast. No significant masses, calcifications, or other findings are seen in either breast. There has been no significant interval change. IMPRESSION: BENIGN There is no mammographic evidence of malignancy. A 1 year screening mammogram is recommended. This exam was interpreted at Station ID: [id number]. NOTE: For mammograms, a report in lay terms will be sent to the patient. Approximately 15% of breast malignancies will not be visualized mammographically. In the management of a palpable breast mass, a negative mammogram must not discourage biopsy of a clinically suspicious lesion. Electronically Signed By: Francy dockery/shekhar:12/17/2021 11:07:49 letter sent: Normal Exam ACR BI-RADS Category 2: Benign Finding(s) 3342F
== END ==
PROVIDERS: PCP Physician Assistant; Referring Provider Physician Assistant; Visit Provider Physician Assistant
DX: Z12.31 Encounter for screening mammogram for malignant neoplasm of breast (principal); Z80.3 Family history of malignant neoplasm of breast
CPT/HCPCS: 77063; 77067

== ENCOUNTER → 2022-12-18 13:16 | Outpatient (CLI) | payer OTHER, SELFPAY ==
[2020-06-29 18:40] VITALS: BMI 22.4
--- NOTE | 2022-12-18 | DI.MG.S_ITS ---
BILATERAL DIGITAL SCREENING MAMMOGRAM 3D/2D WITH CAD: 12/18/2022 CLINICAL: Routine screening. Family history of breast cancer. Comparison is made to exams dated: 12/17/2021 mammogram, 10/04/2020 mammogram, 10/14/2018 mammogram, and 09/26/2017 mammogram - [facility]. There are scattered areas of fibroglandular density in both breasts (category b / 25%-50% glandular tissue). Current study was also evaluated with a Computer Aided Detection (CAD) system. There are benign calcifications in both breasts. No significant masses, calcifications, or other findings are seen in either breast. There has been no significant interval change. IMPRESSION: BENIGN There is no mammographic evidence of malignancy. A 1 year screening mammogram is recommended. Based on the Tyrer Cuzick model (a risk assessment model) the patient's lifetime risk is 5.3% and her 10 year risk is 4.0%. According to the ACR, ACS, and NCCN guidelines, an annual breast MRI exam along with mammogram is recommended if the patient's lifetime risk is 20% or greater. This exam was interpreted at Station ID: [id number]. NOTE: For mammograms, a report in lay terms will be sent to the patient. Approximately 15% of breast malignancies will not be visualized mammographically. In the management of a palpable breast mass, a negative mammogram must not discourage biopsy of a clinically suspicious lesion. Electronically Signed By: Zurdo smith/shekhar:12/18/2022 16:02:20 letter sent: Normal Exam ACR BI-RADS Category 2: Benign Finding(s) 3342F
== END ==
PROVIDERS: PCP Physician Assistant; Referring Provider Physician Assistant; Visit Provider Physician Assistant
DX: Z12.31 Encounter for screening mammogram for malignant neoplasm of breast (principal); Z80.3 Family history of malignant neoplasm of breast
CPT/HCPCS: 77063; 77067

== ENCOUNTER → 2023-01-08 14:06 | Outpatient (CLI) | payer MEDICARE, SELFPAY ==
[2020-06-29 18:40] VITALS: BMI 22.4
[2023-01-08 15:48] LABS: Lithium 0.5 mmol/L (0.6-1.2)
[2023-01-10 17:20] LABS: Lamotrigine Lamictal 5.2 ug/mL (2.0-20.0)
== END ==
PROVIDERS: PCP Physician Assistant; Referring Provider Psychiatry & Neurology Psychiatry; Visit Provider Psychiatry & Neurology Psychiatry
DX: F33.2 Major depressive disorder, recurrent severe without psychotic features (principal); F41.9 Anxiety disorder, unspecified; Z51.81 Encounter for therapeutic drug level monitoring
CPT/HCPCS: 36415; 80175; 80178

== ENCOUNTER 2023-06-13 11:29 | Emergency (ER) | payer OTHER, SELFPAY ==
[2020-06-29 18:40] VITALS: BMI 22.4
[2023-06-13 11:32] VITALS: BP 136/77; PULSE 69; RESP 16; TEMP 36.3; O2SAT 98; BMI 23.3
--- NOTE | 2023-06-13 12:02 | ED.WOUNDLAC ---
HPI - Wound/Laceration <Dasha Tyler PA-C - Last Filed: 06/13/23 12:57> General Chief Complaint: Wound/Laceration Stated Complaint: cut finger poss needs sticthes Time Seen by Provider: 06/13/23 11:50 Source: patient Mode of arrival: Ambulatory History of Present Illness HPI narrative: 73-year-old female who was wrapping presents yesterday and snipped the back of her her hand over the PIP joint of the left 3rd finger. She thought the wound was minor but it tends to bleed and ooze throughout the night whenever she moves it. She is not on any blood thinners nor does she have a history of bleeding disorder, though has always been told that she ?bleeds a lot ?. She does not complain of any significant pain, or swelling. Difficulty with movement Related Data Previous Rx's Medication Instructions Recorded lithium carbonate 300 mg tablet 300 mg PO BEDTIME #90 tabs 09/25/22 lamotrigine 100 mg tablet 200 mg (2 x 100 mg) PO BEDTIME 12/12/22 #180 tabs prazosin 1 mg capsule 3 mg (3 x 1 mg) PO BEDTIME #270 12/12/22 caps hydroxyzine HCl 50 mg tablet 50 mg PO BEDTIME #30 tabs 04/03/23 fluoxetine 20 mg capsule 20 mg PO DAILY #90 caps 04/28/23 gabapentin 300 mg capsule 300 mg PO BID #180 caps 05/05/23 Allergies Allergy/AdvReac Type Severity Reaction Status Date / Time sertraline [From Zoloft] AdvReac Intermediate cysts on Verified 06/13/23 11:35 body Review of Systems <Dasha Tyler PA-C - Last Filed: 06/13/23 12:57> Review of Systems ROS Unobtainable: All systems reviewed & are unremarkable except as noted in HPI and below Patient History <Dasha Tyler PA-C - Last Filed: 06/13/23 12:57> Medical History Spondylisthesis Lumbar stenosis Arthritis Heart murmur Major depressive disorder, recurrent severe without psychotic features Surgical History Hx of hernia repair Hx of bilateral cataract extraction H/O: hysterectomy H/O wrist surgery Social History household members: spouse Smoking Status: Never smoker alcohol intake: former Smoking Status: Never smoker Substance Use Type: does not use Exam <Dasha Tyler PA-C - Last Filed: 06/13/23 12:57> Narrative Exam Narrative: Left hand: 3rd finger with 1.5 cm linear laceration just proximal to the dorsal DIP. Currently not bleeding. Patient has full strength to resistance with flexion and extension and lateral movement as well as intact sensation. After irrigation with 20 cc normal saline, wound does not extend past the dermis. Initial Vital Signs Initial Vital Signs: Vital Signs Temperature 97.4 F L 06/13/23 11:32 Pulse Rate 69 06/13/23 11:32 Respiratory Rate 16 06/13/23 11:32 Blood Pressure 136/77 06/13/23 11:32 Pulse Oximetry 98 06/13/23 11:32 Oxygen Delivery Method Room Air 06/13/23 11:32 <Jerome Figueredo DO - Last Filed: 06/13/23 15:24> Initial Vital Signs Initial Vital Signs: Vital Signs Temperature 97.4 F L 06/13/23 11:32 Pulse Rate 69 06/13/23 11:32 Respiratory Rate 16 06/13/23 11:32 Blood Pressure 136/77 06/13/23 11:32 Pulse Oximetry 98 06/13/23 11:32 Oxygen Delivery Method Room Air 06/13/23 11:32 Procedures <Dasha Tyler PA-C - Last Filed: 06/13/23 12:57> Laceration Repair Laceration 1: Time of procedure: 12:54 Site: hand Size (cm): 1.5 Description: linear Depth: simple, single layer Local Anesthetic: lidocaine 1% Amount of anesthesia used (mL): 2 Pre-repair: wound explored and irrigated extensively Skin layer closed with: nylon Skin layer suture size: 5-0 Number of sutures: 3 Technique: simple, interrupted Course <Dasha Tyler PA-C - Last Filed: 06/13/23 12:57> Orders Ordered: Discontinued Medications Bacitracin (Bacitracin Oint 0.9 Gm Pckt) 1 applic TOP NOW ONE Stop: 06/13/23 12:32 Last Admin: 06/13/23 12:36 Dose: 1 applic Documented By: RUDY Lidocaine HCl (Lidocaine 1% 20 Ml) 20 ml INJ INTRA-OP ONE Stop: 06/13/23 11:57 Last Admin: 06/13/23 12:09 Dose: 20 ml Documented By: RUDY Vital Signs Vital signs: Vital Signs - 8 hr 06/13/23 11:32 Temperature 97.4 F L Pulse Rate 69 Respiratory Rate 16 Blood Pressure 136/77 Pulse Oximetry 98 Oxygen Delivery Method Room Air <Jerome Figueredo DO - Last Filed: 06/13/23 15:24> Orders Ordered: Discontinued Medications Bacitracin (Bacitracin Oint 0.9 Gm Pckt) 1 applic TOP NOW ONE Stop: 06/13/23 12:32 Last Admin: 06/13/23 12:36 Dose: 1 applic Documented By: RUDY Lidocaine HCl (Lidocaine 1% 20 Ml) 20 ml INJ INTRA-OP ONE Stop: 06/13/23 11:57 Last Admin: 06/13/23 12:09 Dose: 20 ml Documented By: RUDY Vital Signs Vital signs: Vital Signs - 8 hr 06/13/23 11:32 Temperature 97.4 F L Pulse Rate 69 Respiratory Rate 16 Blood Pressure 136/77 Pulse Oximetry 98 Oxygen Delivery Method Room Air MDM - Wound/Laceration <Dasha Tyler PA-C - Last Filed: 06/13/23 12:57> Differential Diagnosis Differential diagnosis: Likely laceration MDM Narrative Medical decision making narrative: Simple superficial laceration with no neurovascular or ligamentous deficits. Hemostasis achieved through closing of the wound. No additional bleeding. No difficulty with the suturing. Suggested that she see her primary doctor for bleeding studies. Discharge Plan Departure Patient Disposition: Home Clinical Impression: Laceration Instructions: How to Care for a Laceration After Repair, DI for Minor Laceration Activity Restrictions/Additional Instructions: Your laceration is minor and I expect it will heal well. Keep the wound dry as directed, immobile until healed and get the sutures out in 7-10 days at your primary or our walk-in clinic. It was a pleasure to take care of you. Prescriptions: No Action lithium carbonate 300 mg tablet 300 mg PO BEDTIME Qty: 90 3RF Rx Instructions: 90 day supply hydroxyzine HCl 50 mg tablet 50 mg PO BEDTIME Qty: 30 3RF lamotrigine 100 mg tablet 200 mg PO BEDTIME Qty: 180 1RF prazosin 1 mg capsule 3 mg PO BEDTIME Qty: 270 1RF fluoxetine 20 mg capsule 20 mg PO DAILY Qty: 90 1RF gabapentin 300 mg capsule 300 mg PO BID Qty: 180 1RF Referrals: Shelby Griffin PA-C [Primary Care Provider] - Stand Alone Forms: Patient Portal/API ED Sign-out <Jerome Figueredo, DO - Last Filed: 06/13/23 15:24> Cosign ED Attending Cosignature Attestation: Dr Figueredo Co-Sign Statement: I was available for consultation during this patient's emergency department visit. This chart is signed by myself for administrative purposes only. I did not have direct contact with this patient during this visit. They were seen independently by the APC.
[2023-06-13] MEDS: LIDOCAINE 1% 20 ML INJ (12:09)
[2023-06-13] MEDS: BACITRACIN OINT 0.9 GM PCKT 1 APPLIC TOP (12:36)
== END 2023-06-13 12:51 | disposition home or self-care (01) ==
PROVIDERS: Emergency Provider Physician Assistant; PCP Physician Assistant
DX: S61.213A Laceration without foreign body of left middle finger without damage to nail, initial encounter (principal); W45.8XXA Other foreign body or object entering through skin, initial encounter; Y93.89 Activity, other specified
CPT/HCPCS: 12001; 29130; 99283

== ENCOUNTER 2023-10-27 11:12 | Emergency (ER) | payer MEDICARE, SELFPAY ==
[2020-06-29 18:40] VITALS: BMI 22.4
[2023-10-27 11:20] VITALS: BP 129/60; PULSE 71; RESP 16; TEMP 36.4; O2SAT 100; BMI 23.6
--- NOTE | 2023-10-27 11:28 | DI.RAD.S_ITS ---
PROCEDURE: XR FOOT LT MIN 3V INDICATIONS: leg swelling TECHNIQUE: 3 views of the foot were acquired. COMPARISON: None. FINDINGS: Bones: No fractures or dislocations. Hallux valgus angulation of the 1st MTP with medial bunion formation. No suspicious bony lesions. Soft tissues: No tibiotalar joint effusion. Achilles tendon appears normal. IMPRESSION: No acute bony abnormality. Dictated by: Kash Allison M.D. on 10/27/2023 at 12:13 Approved by: Kash Allison M.D. on 10/27/2023 at 12:14
--- NOTE | 2023-10-27 11:28 | DI.RAD.S_ITS ---
PROCEDURE: XR ANKLE LT MIN 3V INDICATIONS: Leg swelling TECHNIQUE: 3 views of the ankle were acquired. COMPARISON: None. FINDINGS: Bones: No fractures or dislocations. Ankle mortise is normally aligned. No suspicious bony lesions. Soft tissues: No tibiotalar joint effusion. Achilles tendon appears normal. IMPRESSION: No acute bony abnormality or significant effusion. Dictated by: Kash Allison M.D. on 10/27/2023 at 12:10 Approved by: Kash Allison M.D. on 10/27/2023 at 12:13
--- NOTE | 2023-10-27 11:28 | DI.US.S_ITS ---
PROCEDURE: US PERIPH VENOUS LOW EXTREM LT INDICATIONS: leg swelling TECHNIQUE: Real-time imaging, as well as color and pulse Doppler interrogation, were performed of the lower extremity deep veins from the inguinal ligament to the popliteal fossa, with documentation of the visualized calf veins. COMPARISON: None. FINDINGS: The common femoral, femoral, popliteal, and the visualized calf veins are normally compressible, and free of intraluminal thrombus. Color and pulse Doppler demonstrate normal phasic intraluminal flow. There is normal augmentation response to distal compression maneuver. IMPRESSION: No findings of lower extremity deep venous thrombosis. Dictated by: Kash Allison M.D. on 10/27/2023 at 12:35 Approved by: Kash Allison M.D. on 10/27/2023 at 12:36
--- NOTE | 2023-10-27 11:28 | DI.RAD.S_ITS ---
PROCEDURE: XR KNEE LT 3V INDICATIONS: leg swelling TECHNIQUE: 3 views of the knee were acquired. COMPARISON: [facility], , KNEE 3V LEFT, 07/22/2016, 12:02. FINDINGS: Bones: No fractures or dislocations. Mild degenerative changes of the left knee. No suspicious bony lesions. Soft tissues: No joint effusion. No suspicious soft tissue calcifications. IMPRESSION: No acute bony abnormality or significant effusion. Dictated by: Kash Allison M.D. on 10/27/2023 at 12:14 Approved by: Kash Allison M.D. on 10/27/2023 at 12:15
--- NOTE | 2023-10-27 11:28 | DI.RAD.S_ITS ---
PROCEDURE: XR TIBIA FIBULA LT 2V INDICATIONS: Leg swelling TECHNIQUE: 2 views of the tibia and fibula were acquired. COMPARISON: None. FINDINGS: Bones: No fractures or dislocations. No suspicious bony lesions. Soft tissues: No suspicious soft tissue calcifications or masses. IMPRESSION: No acute bony abnormality. Dictated by: Kash Allison M.D. on 10/27/2023 at 12:06 Approved by: Kash Allison M.D. on 10/27/2023 at 12:07
--- NOTE | 2023-10-27 11:38 | ED.GENADULT ---
HPI - General Adult <Gianni Fraga PA-C - Last Filed: 10/27/23 13:15> General Chief complaint: Extremity Problem,Nontraumatic Stated complaint: L/leg possible spider bite/ sent by PCP Time Seen by Provider: 10/27/23 11:27 Source: patient Mode of arrival: Ambulatory History of Present Illness HPI narrative: 73-year-old female with past medical history hypercholesterolemia, anxiety, depression presents to the ED with 2 days of left lower leg swelling and pain. Patient says that she noted 3 small celis on her leg proximal to the left ankle, which she is unsure if it was an insect bite such as a spider bite. Patient denies any trauma. Patient denies history of DVTs, PE. Patient just started a statin recently about 3 weeks ago. Patient denies numbness, tingling, weakness. Patient is able to ambulate normally. Patient denies fever, chills, chest pain, shortness of breath, nausea, vomiting, abdominal pain, dysuria, lightheadedness, dizziness, syncope.. Related Data Previous Rx's Medication Instructions Recorded lamotrigine 100 mg tablet 200 mg (2 x 100 mg) PO BEDTIME 12/12/22 #180 tabs gabapentin 300 mg capsule 300 mg PO BID #180 caps 05/05/23 lithium carbonate 300 mg tablet 300 mg PO BEDTIME #90 tabs 08/04/23 prazosin 1 mg capsule 3 mg (3 x 1 mg) PO BEDTIME #270 08/04/23 caps hydroxyzine HCl 50 mg tablet 50 mg PO BEDTIME #30 tabs 08/05/23 fluoxetine 20 mg capsule 20 mg PO DAILY #90 caps 10/08/23 cephalexin 500 mg capsule 500 mg PO QID 5 days #20 caps 10/27/23 Allergies Allergy/AdvReac Type Severity Reaction Status Date / Time sertraline [From Zoloft] AdvReac Intermediate cysts on Verified 06/13/23 11:35 body Review of Systems <Gianni Fraga PA-C - Last Filed: 10/27/23 13:15> Constitutional Constitutional: Denies chills, Denies fatigue, Denies fever(s), Denies frequent falls, Denies lethargy and Denies weakness Eyes Eyes: Denies change in vision, Denies eye discharge, Denies irritation and Denies loss of vision ENT Ears, Nose, Mouth, and Throat: Denies change in voice, Denies dizziness, Denies neck pain, Denies sore throat and Denies throat swelling Cardiovascular Cardiovascular: Denies chest pain, Denies irregular heart rhythm, Denies lightheadedness, Denies palpitations, Denies dyspnea, Denies dyspnea on exertion and Denies orthopnea Respiratory Respiratory: Denies cough, Denies dyspnea, Denies dyspnea on exertion and Denies wheezing Gastrointestinal Gastrointestinal: Denies abdominal pain, Denies change in bowel habits, Denies diarrhea, Denies nausea and Denies vomiting Musculoskeletal Musculoskeletal: Denies neck pain and Denies numbness Comments: Left lower leg swelling, pain Integumentary/Breasts Skin/Breast: Denies pruritus, Denies erythema, Denies rash and Denies wounds Neurologic Neurologic: Denies behavioral changes, Denies confusion, Denies dizziness, Denies frequent falls, Denies loss of vision, Denies numbness and Denies weakness Psychiatric Psychiatric: Denies anxiety, Denies behavioral changes, Denies confusion, Denies depression, Denies homicidal ideation and Denies suicidal ideation Endocrine Endocrine: Denies fatigue, Denies flushing and Denies palpitations Hematologic/Lymphatic Hematologic/Lymphatic: Denies easy bruising Allergic/Immunologic Allergic/Immunologic: Denies urticaria, Denies throat swelling and Denies wheezing Patient History <Gianni Fraga PA-C - Last Filed: 10/27/23 13:15> Medical History Spondylisthesis Lumbar stenosis Arthritis Heart murmur Major depressive disorder, recurrent severe without psychotic features Surgical History Hx of hernia repair Hx of bilateral cataract extraction H/O: hysterectomy H/O wrist surgery Social History household members: spouse Smoking Status: Never smoker alcohol intake: former Smoking Status: Never smoker Substance Use Type: does not use Exam <Gianni Fraga PA-C - Last Filed: 10/27/23 13:15> Narrative Exam Narrative: Const General:?cooperative, healthy appearing and comfortable HENMT Head:?normal to inspection Ears:?hearing grossly normal bilaterally Nose:?external nose normal Face and sinus:?normal facial exam and sinuses nontender Mouth:?oral mucosae normal Throat:?posterior oropharynx normal Eyes General:?appearance normal, both eyes and all related structures Neck Neck:?normal visual inspection and no lymphadenopathy noted Resp Effort & Inspection:?normal respiratory effort Auscultation:?clear to auscultation bilaterally Cardio Rate:?regular rate Rhythm:?regular rhythm Musculoskeletal Left lower leg appears swollen compared to right. Lower leg feels somewhat tense, however compartments are still soft. There are a few celis that are scabbed over above the medial left ankle. No erythema, discharge. Strength and sensation is intact. Gait normal. Neurovascularly intact. Neuro General:?patient alert, patient awake and patient oriented x3 Initial Vital Signs Initial Vital Signs: Vital Signs Temperature 97.6 F 10/27/23 11:20 Pulse Rate 71 10/27/23 11:20 Respiratory Rate 16 10/27/23 11:20 Blood Pressure 129/60 10/27/23 11:20 Pulse Oximetry 100 10/27/23 11:20 Oxygen Delivery Method Room Air 10/27/23 11:20 <Rosalina Hsu DO - Last Filed: 10/28/23 08:43> Initial Vital Signs Initial Vital Signs: Vital Signs Temperature 97.6 F 10/27/23 11:20 Pulse Rate 71 10/27/23 11:20 Respiratory Rate 16 10/27/23 11:20 Blood Pressure 129/60 10/27/23 11:20 Pulse Oximetry 100 10/27/23 11:20 Oxygen Delivery Method Room Air 10/27/23 11:20 Course <Gianni Fraga PA-C - Last Filed: 10/27/23 13:15> Orders Ordered: ED Orders 10/27/23 11:28 periph venous low extrem lt Stat XR ankle LT min 3V Stat XR foot LT min 3V Stat XR knee LT 3V Stat XR tibia fibula LT 2V Stat Vital Signs Vital signs: Vital Signs - 8 hr 10/27/23 11:20 Temperature 97.6 F Pulse Rate 71 Respiratory Rate 16 Blood Pressure 129/60 Pulse Oximetry 100 Oxygen Delivery Method Room Air <DO Laurie Clements Last Filed: 10/28/23 08:43> Orders Ordered: ED Orders 10/27/23 11:28 periph venous low extrem lt Stat XR ankle LT min 3V Stat XR foot LT min 3V Stat XR knee LT 3V Stat XR tibia fibula LT 2V Stat Vital Signs Vital signs: Vital Signs - 8 hr 10/27/23 11:20 Temperature 97.6 F Pulse Rate 71 Respiratory Rate 16 Blood Pressure 129/60 Pulse Oximetry 100 Oxygen Delivery Method Room Air Medical Decision Making <Gianni Fraga PA-C - Last Filed: 10/27/23 13:15> MDM Narrative Medical decision making narrative: 73-year-old female with past medical history hypercholesterolemia, anxiety, depression presents to the ED with 2 days of left lower leg swelling and pain. Concern for fracture/dislocation versus DVT versus musculoskeletal sprain/strain versus cellulitis versus insect bite versus other. Obtained x-rays, ultrasound with no acute findings. Discussed findings with patient that she possibly has a musculoskeletal sprain/strain versus a cellulitis. Will treat with antibiotics. Also discussed possible correlation to starting statins recently, although unlikely given the unilateral leg swelling. Recommend follow-up with PCP as soon as possible. ED return precautions discussed with patient. Patient verbalized understanding. Medical records reviewed: Yes Discharge Plan Departure Patient Disposition: Home Clinical Impression: Left leg swelling Instructions: DI for Cellulitis -- Adult, DI for Leg Pain Activity Restrictions/Additional Instructions: You were evaluated in the ED today for left lower leg swelling and pain. Your ultrasound and x-rays were normal. It is possible that you either have a soft tissue injury from a musculoskeletal sprain/strain of the lower leg or a skin infection. You are being treated with an antibiotic for the possible skin infection. Please take the antibiotics as prescribed. Please follow-up with your PCP as soon as possible. Please return to the ED if you have worsening symptoms, numbness, tingling, weakness. Prescriptions: New cephalexin 500 mg capsule 500 mg PO QID 5 Days Qty: 20 0RF No Action hydroxyzine HCl 50 mg tablet 50 mg PO BEDTIME Qty: 30 3RF lamotrigine 100 mg tablet 200 mg PO BEDTIME Qty: 180 1RF gabapentin 300 mg capsule 300 mg PO BID Qty: 180 1RF lithium carbonate 300 mg tablet 300 mg PO BEDTIME Qty: 90 1RF Rx Instructions: 90 day supply prazosin 1 mg capsule 3 mg PO BEDTIME Qty: 270 1RF fluoxetine 20 mg capsule 20 mg PO DAILY Qty: 90 1RF Referrals: Shelby Griffin PA-C [Primary Care Provider] - Stand Alone Forms: Patient Portal/API ED Sign-out <Rsoalina Hsu DO - Last Filed: 10/28/23 08:43> Cosign ED Attending Cosignature Attestation: I was available for consultation.
[2023-10-27 13:11] VITALS: BP 130/63; PULSE 68; RESP 20; TEMP 36.5; O2SAT 98
== END 2023-10-27 13:16 | disposition home or self-care (01) ==
PROVIDERS: Emergency Provider Student in an Organized Health Care Education/Training Program; PCP Physician Assistant
DX: M79.89 Other specified soft tissue disorders (principal)
CPT/HCPCS: 73562; 73590; 73610; 73630; 93971; 99284

== ENCOUNTER → 2023-11-24 13:43 | Outpatient (CLI) | payer MEDICARE, SELFPAY ==
[2020-06-29 18:40] VITALS: BMI 22.4
--- NOTE | 2023-11-24 13:47 | DI.CT.S_ITS ---
PROCEDURE: CT ABDOMEN PELVIS W CON INDICATIONS: left leg swelling TECHNIQUE: After the administration of intravenous contrast, axial sections acquired from the lung bases to the pubic symphysis. Coronal and sagittal reformats were performed. For radiation dose reduction, the following was used: automated exposure control, adjustment of mA and/or kV according to patient size. COMPARISON: [facility], , US PERIPH VENOUS LOW EXTREM LT, 11/24/2023, 15:27. FINDINGS: Image quality: Diagnostic. Lower Chest: No significant findings. ABDOMEN: Liver: No solid mass. Normal size. Mild hepatic steatosis. Gallbladder: No radiopaque gallstones or wall thickening. Biliary ducts: No biliary dilation. Pancreas: No ductal dilation. Spleen: Size is within normal limits. Adrenal Glands: No adrenal nodules. Kidneys and Ureters: No hydronephrosis. No solid mass. No complex renal cystic lesion which requires follow up. Stomach and Bowel: Normal colonic caliber, without significant wall thickening. Diverticulosis. No acute diverticulitis. There is a large amount of stool in colon. Peritoneum: No abnormal intraperitoneal fluid. No free air. Ventral Wall: No significant ventral hernia. Abdominal Nodes: No retroperitoneal or mesenteric adenopathy by size criteria. Vessels: Aorta and inferior vena cava are normal in size. PELVIS: Pelvic Organs: Unremarkable. Bladder: No bladder wall thickening, accounting for underdistention. Pelvic Nodes: No enlarged lymph nodes. Miscellaneous: No inguinal hernias are seen. There is fluid in the iliopsoas bursa consistent with bursitis. Bones: No aggressive osseous abnormality. Moderate dextroscoliosis. Degenerative and severe postsurgical changes in lumbar spine. IMPRESSION: 1. Iliopsoas bursal fluid is present, consistent with bursitis. Differential diagnoses are septic bursitis versus aseptic bursitis. 2. Diverticulosis. No acute diverticulitis. 3. A large amount of stool in colon. Dictated by: Carolina Gomes M.D. on 11/24/2023 at 15:48 Approved by: Carolina Gomes M.D. on 11/24/2023 at 16:40
--- NOTE | 2023-11-24 13:47 | DI.US.S_ITS ---
PROCEDURE: US PERIPH VENOUS LOW EXTREM LT INDICATIONS: left leg swelling TECHNIQUE: Real-time imaging, as well as color and pulse Doppler interrogation, were performed of the lower extremity deep veins from the inguinal ligament to the popliteal fossa, with documentation of the visualized calf veins. COMPARISON: [facility], CT, CT ABDOMEN PELVIS W CON, 11/24/2023, 15:11. [facility], US, US PERIPH VENOUS LOW EXTREM LT, 10/27/2023, 12:04. FINDINGS: The common femoral, femoral, popliteal, and the visualized calf veins are normally compressible, and free of intraluminal thrombus. Color and pulse Doppler demonstrate normal phasic intraluminal flow. There is normal augmentation response to distal compression maneuver. There is a fluid collection noted adjacent to the left femoral head. This measures 7.1 x 1.6 x 1.5 cm. IMPRESSION: No findings of lower extremity deep venous thrombosis. Fluid collection again seen associated with the left hip, which is overall better demonstrated on the accompanying CT. Dictated by: Tevin Abdalla M.D. on 11/24/2023 at 15:26 Approved by: Tevin Abdalla M.D. on 11/24/2023 at 15:28
[2023-11-24 14:17] LABS: Estimated Glomerular Filt Rate > 60 mL/min (>60)
== END ==
LOC: US 13:45
PROVIDERS: Radiology Vascular & Interventional Radiology; PCP Physician Assistant; Referring Provider Physician Assistant; Visit Provider Physician Assistant
DX: K57.90 Diverticulosis of intestine, part unspecified, without perforation or abscess without bleeding (principal); K76.0 Fatty (change of) liver, not elsewhere classified; M79.89 Other specified soft tissue disorders; R59.0 Localized enlarged lymph nodes
CPT/HCPCS: 36415; 74177; 82565; 93971; Q9967

== ENCOUNTER → 2023-12-31 13:45 | Outpatient (CLI) | payer MEDICARE, SELFPAY ==
[2020-06-29 18:40] VITALS: BMI 22.4
--- NOTE | 2023-12-31 13:48 | DI.MG.S_ITS ---
BILATERAL DIGITAL SCREENING MAMMOGRAM 3D/2D WITH CAD: 12/31/2023 CLINICAL: Routine screening. Family history of breast cancer. Comparison is made to exams dated: 12/18/2022 mammogram, 12/17/2021 mammogram, and 10/04/2020 mammogram - [facility]. There are scattered areas of fibroglandular density in both breasts (category b / 25%-50% glandular tissue). Current study was also evaluated with a Computer Aided Detection (CAD) system. There are benign calcifications in both breasts. There also are benign post operative findings in the left breast. No significant masses, calcifications, or other findings are seen in either breast. There has been no significant interval change. IMPRESSION: BENIGN There is no mammographic evidence of malignancy. A 1 year screening mammogram is recommended. Based on the Tyrer Cuzick model (a risk assessment model) the patient's lifetime risk is 5.0% and her 10 year risk is 4.1%. According to the ACR, ACS, and NCCN guidelines, an annual breast MRI exam along with mammogram is recommended if the patient's lifetime risk is 20% or greater. This exam was interpreted at Station ID: [id number]. NOTE: For mammograms, a report in lay terms will be sent to the patient. Approximately 15% of breast malignancies will not be visualized mammographically. In the management of a palpable breast mass, a negative mammogram must not discourage biopsy of a clinically suspicious lesion. Electronically Signed By: Tano de la cruz/shekhar:12/31/2023 14:48:14 letter sent: Normal Exam ACR BI-RADS Category 2: Benign Finding(s) 3342F
== END ==
PROVIDERS: PCP Physician Assistant; Referring Provider Physician Assistant; Visit Provider Physician Assistant
DX: Z12.31 Encounter for screening mammogram for malignant neoplasm of breast (principal); Z80.3 Family history of malignant neoplasm of breast; R92.323 Mammographic fibroglandular density, bilateral breasts
CPT/HCPCS: 77063; 77067

== ENCOUNTER → 2024-01-20 11:25 | Outpatient (CLI) | payer MEDICARE, SELFPAY ==
[2020-06-29 18:40] VITALS: BMI 22.4
--- NOTE | 2024-01-20 12:44 | DI.MRI.S_ITS ---
PROCEDURE: MR FEMUR LT WO CON INDICATIONS: LEFT HIP PAIN TECHNIQUE: Noncontrast coronal and sagittal T1 spin echo and STIR; sagittal T1 spin echo with fat saturation; axial T1 spin echo and T2 fast spin echo with fat saturation through the left femur. COMPARISON: [facility], CR, XR KNEE LT 3V, 10/27/2023, 11:38. FINDINGS: Image quality: Excellent. Bones: The visualized bone marrow demonstrates normal signal on all sequences. The overlying cortex appears intact. No fractures lines or intra-osseous lesions. Mild degenerative changes are seen in the left hip. Soft tissues: Moderate left iliopsoas bursal effusion. Small left hip effusion. Small bilateral trochanteric bursal effusions. Partial intrasubstance tearing of the proximal hamstring tendons at their origins bilaterally superimposed on chronic tendinosis. Focal fatty infiltration versus small intramuscular lipoma within the midportion of the left abductor longus muscle (image 30 of series 8). Similar fatty infiltration is seen within the lateral portion of the rectus femoris muscle at the same level. There is mild nonspecific subcutaneous edema in the anterior portion of the left thigh that is asymmetric when compared to the contralateral right side. The visualized musculature is normal in bulk. IMPRESSION: 1. Mild nonspecific subcutaneous edema throughout the anterior medial left thigh that is of uncertain etiology. No acute osseous abnormality. 2. Moderate left iliopsoas bursal effusion. 3. Mild degenerative changes at the left hip with a small left hip effusion. 4. Partial intrasubstance tearing at the origins of proximal hamstring tendons bilaterally superimposed on chronic tendinosis. 5. Focal fatty infiltration of the left abductor longus and rectus femoris muscles may be secondary to remote prior injuries or less likely small intramuscular lipomas. Approved by: Roberto Sterling M.D. on 01/21/2024 at 10:11
== END ==
LOC: MRI 11:26
PROVIDERS: PCP Physician Assistant; Referring Provider Orthopaedic Surgery Adult Reconstructive Orthopaedic Surgery; Visit Provider Orthopaedic Surgery Adult Reconstructive Orthopaedic Surgery
DX: S76.012A Strain of muscle, fascia and tendon of left hip, initial encounter (principal); M25.552 Pain in left hip; M25.452 Effusion, left hip; R60.0 Localized edema
CPT/HCPCS: 73718

== ENCOUNTER 2024-04-28 14:30 | Outpatient (RCR) | payer MEDICARE, SELFPAY ==
[2020-06-29 18:40] VITALS: BMI 22.4
--- NOTE | 2024-03-23 16:37 | PT.OIE ---
Current Diagnoses Lymphedema, not elsewhere classified (03/23/24) Other specified soft tissue disorders (03/23/24) Difficulty in walking, not elsewhere classified (03/23/24) Past Medical History (Last Reviewed 10/27/23 @ 11:38 by Gianni Fraga PA-C) Arthritis Heart murmur Lumbar stenosis Major depressive disorder, recurrent severe without psychotic features Spondylisthesis Past Surgical History (Last Reviewed 10/27/23 @ 11:38 by Gianni Fraga PA-C) H/O wrist surgery H/O: hysterectomy Hx of bilateral cataract extraction Hx of hernia repair Visit Care Team Role Provider Type Shelby Griffin PA-C Family Provider Advanced [employer]er [employer] Rep Primary Care Provider Specialty: Medical Address: [address] [place] [address], [id number] Email: Chase Lombardi MD Attending Provider Physician Referring Provider Specialty: Orthopedics Orthopedic Surgery Address: [address] [place] [address], [id number] Email: [email or web address] Initial Evaluation PT-OP-A Visit Information Start: 03/23/24 08:14 Freq: Status: Active Protocol: Document 03/23/24 08:14 [facility] (Rec: 03/23/24 09:44 [facility] [id number]) Out-Patient Physical Therapy Visit Information Visit Information Visit Type Initial Evaluation Visit Start Time 08:14 Visit Stop Time 09:43 Visit Number 1 Evaluation Information Evaluation Date 02/26/24 PT-OP-B Current Condition Start: 03/23/24 08:14 Freq: Status: Active Protocol: Document 03/23/24 08:14 [facility] (Rec: 03/23/24 09:44 [facility] [id number]) Current Condition History of Current Condition Onset Date 2 months Current Complaints left leg swelling History of Current Condition putting pants on noticed ankle swelling, then pretty soon whole leg up to groin, cause unknown. hysterectomy when young, spinal fusion 3-4 yrs ago. Started taking a statin but after had already experience swelling. Doesn't remember getting a bite, but noticed to celis on her ankle, was given antibiotic, no change in swelling. Denies redness or warmth. Wore compression stockings thigh high, have pantyhose style but hasn't tried yet but very hard to don. Unsure of compression level, thinks 30 Better in am, gets worse throughout the day. Uses Cetaphil lotion on leg. Prior Treatments and Tests MRI and ultrasound; no blood clot, no mass. Future Testing and Treatments Planned none Treatment Goals Patient/Caregiver Goals decrease swelling, improve function Prior Functional Status Baseline Function- ADL's Independent Baseline Function- Mobility Independent Baseline Function- Gait indep Current Functional Impairments (Reported) Functional Limitations- Mobility/Gait decreased distance due to heaviness of left leg PT-OP-C Subjective Start: 03/23/24 08:14 Freq: Status: Active Protocol: Document 03/23/24 08:14 [facility] (Rec: 03/24/24 16:35 [facility] [id number]) Patient Questionnaires Lymphedema Life Impact Score Lymphedema Score 12 OP-PT Pain Assessment Pain Assessment Grid Paper Pain Assessment Grid Completed Yes Location Lower Back Intensity 0 PT-OP-G Mobility & Gait Start: 03/23/24 08:14 Freq: Status: Active Protocol: Document 03/23/24 08:14 [facility]AK (Rec: 03/24/24 16:35 [facility] [id number]) OP Gait Assessment Assistive Devices Assistive Device None Gait Deviations General Gait Pattern Decreased Stride Length, Decreased Feet Clearance Comments Gait Comments swelling PT-OP-J Posture/Palpation/Skin Start: 03/23/24 08:14 Freq: Status: Active Protocol: Document 03/23/24 08:14 [facility] (Rec: 03/24/24 16:35 [facility] [id number]) Skin Assessment Edema Assessment left LE Edema Type Non-Pitting Edema Appearance Puffy Subjective Edema Description Tightness PT-OP-K Range of Motion Start: 03/23/24 08:14 Freq: Status: Active Protocol: Document 03/23/24 08:14 [facility]AK (Rec: 03/24/24 16:35 [facility] [id number]) Hip Goniometric Range of Motion Hip roc Hip ROM WFL Yes Knee Goniometric Range of Motion Knee roc Knee ROM WFL Yes Ankle and Foot Goniometric Range of Motion Ankle and Foot Left Ankle/Foot ROM WFL No Dorsiflexion with Knee Flexed 5 Dorsiflexion with Knee Extended 0 right Ankle/Foot ROM WFL Yes PT-OP-L Special Tests Start: 03/23/24 08:14 Freq: Status: Active Protocol: Document 03/23/24 08:14 [facility] (Rec: 03/24/24 16:36 [facility] [id number]) Special Tests Other Special Tests Special Tests Stemmer sign positive left PT-OP-N Lymphedema Start: 03/23/24 08:14 Freq: Status: Active Protocol: Document 03/23/24 08:14 [facility] (Rec: 03/23/24 09:44 [facility] [id number]) Lymphedema Measurements Lower Extremity Circumference Measurements Left Affected MT Heads 22.6 cm Mid-foot 21.5 cm Medial Malleolus 26 cm 10 cm From Medial Malleolus 25.8 cm 20 cm From Medial Malleolus 36.4 cm 30 cm From Medial Malleolus 39.4 cm 40 cm From Medial Malleolus 42.8 cm 50 cm From Medial Malleolus 49.5 cm 60 cm From Medial Malleolus 58.7 cm 70 cm From Medial Malleolus 65.3 cm Knee Joint 41.8 cm - groin: 72 Right Unaffected MT Heads 22.1 cm Mid-foot 20.4 cm Medial Malleolus 24.5 cm 10 cm From Medial Malleolus 22 cm 20 cm From Medial Malleolus 31.4 cm 30 cm From Medial Malleolus 34.6 cm 40 cm From Medial Malleolus 38.2 cm 50 cm From Medial Malleolus 44.9 cm 60 cm From Medial Malleolus 53.5 cm 70 cm From Medial Malleolus 62.2 cm Knee Joint 38 cm - groin:72.3 Comments Lymphedema Comments Stage II lymphedema, with fibrosis evident PT-OP-Q Treatments Start: 03/23/24 08:14 Freq: Status: Active Protocol: Document 03/23/24 08:14 [facility] (Rec: 03/24/24 16:35 [facility] [id number]) Lymphedema Treatment Manual Lymphatic Drainage Location left LE Comments with patient education Lymphedema Wrapping Materials Tricofix size F, Artiflex (3), Comprilan 6,8,10, 10 Patient Education Lymphedema Pathology instructed Lymphedema Prevention instructed and issued handout Lymphedema Precautions instructed and issued handout Compression Garments discussed and given online resources Self Manual Lymphatic Drainage instructed and issued handout and online resources Sequential Lymphedema Exercises instructed and issued handout PT-OP-T Assessment and Plan Start: 03/23/24 08:14 Freq: Status: Active Protocol: Document 03/23/24 08:14 NANCY (Rec: 03/23/24 09:44 [facility] [id number]) Physical Therapy Assessment Goals Two Impairment decrease in ability to walk or do usual activities due to weight of left LE Fpc Goal (LTG) patient will be able to resume going for walks and return to all usual activities LTG Duration 06/23/24 One Impairment lymphedema left LE Short Term Goal (STG) Patient will be instructed in all aspects of lymphedema self -care to include skin care, elevation, self-massage, self- bandaging/compression options, and lymphedema exercises. STG Duration 04/26/24 Fpc Goal (LTG) Decrease patient?s lymphedema to a stable level (no increase or decrease greater than 1 cm over the course of 1 week), patient to be independent with all aspects of self-care for lymphedema, and will obtain appropriate compression garment for lymphedema management in the home. LTG Duration 06/23/24 Assessment Summary Assessment Pt. presents to PT with function-limiting lymphedema in her entire left LE, cause uncertain. No signs or symptoms of infection. Positive Stemmer sign. Today' s PT session consisted of evaluation, initial patient education in lymphedema physiology and components of treatment, compression bandages applied to left LE with instruction to remove if painful or experiences numbness. Issued written instructions for lymphedema exercises, self massage, and self bandaging, as well as resource information. Feel she will benefit from PT for Complete Decongestive Therapy for lymphedema. POC was discussed and patient was in agreement. Physical Therapy Plan Frequency and Duration Frequency of Treatment 20 visits Duration of treatment (weeks) 12 Plan of Care Start Date 03/23/24 Plan of Care End Date 06/23/24 Therapeutic Interventions Therapeutic Interventions Home Exercise Program, Lymphedema Management,Manual Therapy,Patient/Caregiver Education,Self-Care/Home Management,Soft Tissue Mobilization,Taping, Therapeutic Exercises Modalities Vasopneumatic Devices Next Visit Focus/Plan Next Note Type Treatment Note Next Visit Plan Continue lymphedema managment; skin care, elevation, MLD, exercise, compression bandaging with continued education with all.
--- NOTE | 2024-03-31 16:14 | PT.OTN ---
Current Diagnoses Lymphedema, not elsewhere classified (03/31/24) Other specified soft tissue disorders (03/31/24) Difficulty in walking, not elsewhere classified (03/31/24) Physical Therapy Treatment Note PT-OP-A Visit Information Start: 03/23/24 08:14 Freq: Status: Active Protocol: Document 03/31/24 14:17 SAK (Rec: 03/31/24 14:46 [facility] [id number]) Out-Patient Physical Therapy Visit Information Visit Information Visit Type Treatment Note Visit Start Time 14:20 Visit Stop Time 15:50 Visit Number 2 Evaluation Information Evaluation Date 02/26/24 PT-OP-B Current Condition Start: 03/23/24 08:14 Freq: Status: Active Protocol: Document 03/31/24 14:17 SAK (Rec: 03/31/24 14:46 [facility] [id number]) Current Condition History of Current Condition Onset Date 2 months Current Complaints left leg swelling History of Current Condition putting pants on noticed ankle swelling, then pretty soon whole leg up to groin, cause unknown. hysterectomy when young, spinal fusion 3-4 yrs ago. Started taking a statin but after had already experience swelling. Doesn't remember getting a bite, but noticed to celis on her ankle, was given antibiotic, no change in swelling. Denies redness or warmth. Wore compression stockings thigh high, have pantyhose style but hasn't tried yet but very hard to don. Unsure of compression level, thinks 30 Better in am, gets worse throughout the day. Uses Cetaphil lotion on leg. Prior Treatments and Tests MRI and ultrasound; no blood clot, no mass. Future Testing and Treatments Planned none PT-OP-C Subjective Start: 03/23/24 08:14 Freq: Status: Active Protocol: Document 03/31/24 14:17 SAK (Rec: 03/31/24 14:46 [facility] [id number]) OP-PT Subjective Patient Comments Patient Comments Has been doing self massage, watching diet more (anti- inflammatory), and has been using exercise bike though not while wearing compression. WEaring compression stockings (open toe full length) to PT today, unsure compression level. Also brought thigh high compression stockings to show PT today; open toe 20-30 mm Hg. PT-OP-G Mobility & Gait Start: 03/23/24 08:14 Freq: Status: Active Protocol: Document 03/23/24 08:14 SAK (Rec: 03/24/24 16:35 [facility] [id number]) OP Gait Assessment Assistive Devices Assistive Device None Gait Deviations General Gait Pattern Decreased Stride Length, Decreased Feet Clearance Comments Gait Comments swelling PT-OP-J Posture/Palpation/Skin Start: 03/23/24 08:14 Freq: Status: Active Protocol: Document 03/23/24 08:14 SAK (Rec: 03/24/24 16:35 [facility] [id number]) Skin Assessment Edema Assessment left LE Edema Type Non-Pitting Edema Appearance Puffy Subjective Edema Description Tightness PT-OP-K Range of Motion Start: 03/23/24 08:14 Freq: Status: Active Protocol: Document 03/23/24 08:14 SAK (Rec: 03/24/24 16:35 [facility] [id number]) Hip Goniometric Range of Motion Hip roc Hip ROM WFL Yes Knee Goniometric Range of Motion Knee roc Knee ROM WFL Yes Ankle and Foot Goniometric Range of Motion Ankle and Foot Left Ankle/Foot ROM WFL No Dorsiflexion with Knee Flexed 5 Dorsiflexion with Knee Extended 0 right Ankle/Foot ROM WFL Yes PT-OP-L Special Tests Start: 03/23/24 08:14 Freq: Status: Active Protocol: Document 03/23/24 08:14 SAK (Rec: 03/24/24 16:36 [facility] [id number]) Special Tests Other Special Tests Special Tests Stemmer sign positive left PT-OP-N Lymphedema Start: 03/23/24 08:14 Freq: Status: Active Protocol: Document 03/31/24 14:17 SAK (Rec: 03/31/24 14:46 [facility] [id number]) Lymphedema Measurements Lower Extremity Circumference Measurements Left Affected MT Heads 22 cm Mid-foot 21.3 cm Medial Malleolus 25 cm 10 cm From Medial Malleolus 21.8 cm 20 cm From Medial Malleolus 31.7 cm 30 cm From Medial Malleolus 36.4 cm 40 cm From Medial Malleolus 38.7 cm 50 cm From Medial Malleolus 44 cm 60 cm From Medial Malleolus 52.8 cm 70 cm From Medial Malleolus 65.5 cm Knee Joint 37 cm PT-OP-Q Treatments Start: 03/23/24 08:14 Freq: Status: Active Protocol: Document 03/31/24 14:17 [facility] (Rec: 03/31/24 16:10 [facility] [id number]) Lymphedema Treatment Manual Lymphatic Drainage Location for left LE edema reduction Comments with patient education Lymphedema Wrapping Materials assisted with patient education pantyhose style compression stockings donning with patient demonstrating good undertstanding after practice and cues from PT and video. Sequential Lymphedema Exercises Comments next session; encouraged patient ride her bike after PT today. Compression Garment Assessment Compression Garment Assessment Details current compression pantyhose open toe style, compression level uncertain and not providing any compression at foot and ankle; too loose. Advised patient to make appointment with [facility] for end of next week. Patient Education Lymphedema Pathology reviewed Lymphedema Prevention reviewed Lymphedema Precautions reviewed Compression Garments discussed and instructed to make appt for fitting end of next week Self Manual Lymphatic Drainage reviewed Sequential Lymphedema Exercises patient performing at home and is riding exercise bike w/o compression Other advised patient to wear compression all day and especially when doing exercise PT-OP-T Assessment and Plan Start: 03/23/24 08:14 Freq: Status: Active Protocol: Document 03/31/24 14:17 [facility] (Rec: 03/31/24 14:46 [facility] [id number]) Physical Therapy Assessment Goals Two Impairment decrease in ability to walk or do usual activities due to weight of left LE Intermediate Goal (LTG) patient will be able to resume going for walks and return to all usual activities LTG Duration 06/23/24 One Impairment lymphedema left LE Short Term Goal (STG) Patient will be instructed in all aspects of lymphedema self -care to include skin care, elevation, self-massage, self- bandaging/compression options, and lymphedema exercises. STG Duration 04/26/24 Reservoir Caretaker Goal (LTG) Decrease patient?s lymphedema to a stable level (no increase or decrease greater than 1 cm over the course of 1 week), patient to be independent with all aspects of self-care for lymphedema, and will obtain appropriate compression garment for lymphedema management in the home. LTG Duration 06/23/24 Progress Towards Goals Progress Towards Goals Progressing Toward Goals Assessment Summary Assessment Good reduction noted in all circumferential measurements except most proximal hip measurement. With MLD spent extra time proximal and inner thigh with continued education of patient technique. Instructed use of compression with exercise very important. Instructed in donning of her pantyhose style compression stockings with patient demonstrating good understanding. Patient advised to make appointment with [facility] for end of next week for compression fitting appt. Physical Therapy Plan Frequency and Duration Frequency of Treatment 20 visits Duration of treatment (weeks) 12 Plan of Care Start Date 03/23/24 Plan of Care End Date 06/23/24 Therapeutic Interventions Therapeutic Interventions Home Exercise Program, Lymphedema Management,Manual Therapy,Patient/Caregiver Education,Self-Care/Home Management,Soft Tissue Mobilization,Taping, Therapeutic Exercises Modalities Vasopneumatic Devices Next Visit Focus/Plan Next Note Type Treatment Note Next Visit Plan circumferential measurements, continue CDT.
--- NOTE | 2024-04-06 15:21 | PT.OTN ---
Current Diagnoses Lymphedema, not elsewhere classified (04/06/24) Other specified soft tissue disorders (04/06/24) Difficulty in walking, not elsewhere classified (04/06/24) Physical Therapy Treatment Note PT-OP-A Visit Information Start: 03/23/24 08:14 Freq: Status: Active Protocol: Document 04/06/24 12:58 SAK (Rec: 04/06/24 13:24 [facility] [id number]) Out-Patient Physical Therapy Visit Information Visit Information Visit Type Treatment Note Visit Start Time 13:00 Visit Stop Time 14:25 Visit Number 3 Evaluation Information Evaluation Date 02/26/24 PT-OP-B Current Condition Start: 03/23/24 08:14 Freq: Status: Active Protocol: Document 04/06/24 12:58 SAK (Rec: 04/06/24 13:24 [facility] [id number]) Current Condition History of Current Condition Onset Date 2 months Current Complaints left leg swelling History of Current Condition putting pants on noticed ankle swelling, then pretty soon whole leg up to groin, cause unknown. hysterectomy when young, spinal fusion 3-4 yrs ago. Started taking a statin but after had already experience swelling. Doesn't remember getting a bite, but noticed to celis on her ankle, was given antibiotic, no change in swelling. Denies redness or warmth. Wore compression stockings thigh high, have pantyhose style but hasn't tried yet but very hard to don. Unsure of compression level, thinks 30 Better in am, gets worse throughout the day. Uses Cetaphil lotion on leg. Prior Treatments and Tests MRI and ultrasound; no blood clot, no mass. Future Testing and Treatments Planned none PT-OP-C Subjective Start: 03/23/24 08:14 Freq: Status: Active Protocol: Document 04/06/24 12:58 SAK (Rec: 04/06/24 13:24 [facility] [id number]) OP-PT Subjective Patient Comments Patient Comments Doing well, states swelling staying down. Hasn't made it to [facility] yet due to company, wearing knee high some of the time, occasionally thigh high. PT-OP-G Mobility & Gait Start: 03/23/24 08:14 Freq: Status: Active Protocol: Document 03/23/24 08:14 SAK (Rec: 03/24/24 16:35 [facility] [id number]) OP Gait Assessment Assistive Devices Assistive Device None Gait Deviations General Gait Pattern Decreased Stride Length, Decreased Feet Clearance Comments Gait Comments swelling PT-OP-J Posture/Palpation/Skin Start: 03/23/24 08:14 Freq: Status: Active Protocol: Document 03/23/24 08:14 SAK (Rec: 03/24/24 16:35 [facility] [id number]) Skin Assessment Edema Assessment left LE Edema Type Non-Pitting Edema Appearance Puffy Subjective Edema Description Tightness PT-OP-K Range of Motion Start: 03/23/24 08:14 Freq: Status: Active Protocol: Document 03/23/24 08:14 SAK (Rec: 03/24/24 16:35 [facility] [id number]) Hip Goniometric Range of Motion Hip roc Hip ROM WFL Yes Knee Goniometric Range of Motion Knee roc Knee ROM WFL Yes Ankle and Foot Goniometric Range of Motion Ankle and Foot Left Ankle/Foot ROM WFL No Dorsiflexion with Knee Flexed 5 Dorsiflexion with Knee Extended 0 right Ankle/Foot ROM WFL Yes PT-OP-L Special Tests Start: 03/23/24 08:14 Freq: Status: Active Protocol: Document 03/23/24 08:14 [facility] (Rec: 03/24/24 16:36 [facility] [id number]) Special Tests Other Special Tests Special Tests Stemmer sign positive left PT-OP-N Lymphedema Start: 03/23/24 08:14 Freq: Status: Active Protocol: Document 04/06/24 12:58 [facility] (Rec: 04/06/24 13:24 [facility] [id number]) Lymphedema Measurements Lower Extremity Circumference Measurements Left Affected MT Heads 21.8 cm Mid-foot 21.3 cm Medial Malleolus 24.4 cm 10 cm From Medial Malleolus 22.5 cm 20 cm From Medial Malleolus 33.2 cm 30 cm From Medial Malleolus 36.5 cm 40 cm From Medial Malleolus 38.4 cm 50 cm From Medial Malleolus 44.4 cm 60 cm From Medial Malleolus 52 cm 70 cm From Medial Malleolus 66.5 cm Knee Joint 37.8 cm PT-OP-Q Treatments Start: 03/23/24 08:14 Freq: Status: Active Protocol: Document 04/06/24 12:58 SAK (Rec: 04/06/24 13:24 SAK [id number]) Lymphedema Treatment Manual Lymphatic Drainage Location for left LE edema reduction Comments with patient education Lymphedema Wrapping Materials assisted with patient education pantyhose style compression stockings shown options for donning aids and gloves, Dycem for ease of donning Sequential Lymphedema Exercises Comments Patient continues with walking and bike riding for her exercise Compression Garment Assessment Compression Garment Assessment Details Patient still to make appointment at [facility]; did not this week due to having company Patient Education Lymphedema Pathology reviewed Lymphedema Prevention reviewed Lymphedema Precautions reviewed Compression Garments discussed and instructed to make appt for fitting end of next week Self Manual Lymphatic Drainage reviewed Sequential Lymphedema Exercises patient performing at home and is riding exercise bike w/o compression Other advised patient to wear compression all day and especially when doing exercise PT-OP-T Assessment and Plan Start: 03/23/24 08:14 Freq: Status: Active Protocol: Document 04/06/24 12:58 [facility] (Rec: 04/06/24 13:24 [facility] [id number]) Physical Therapy Assessment Goals Two Impairment decrease in ability to walk or do usual activities due to weight of left LE Display Card Writer Goal (LTG) patient will be able to resume going for walks and return to all usual activities LTG Duration 06/23/24 One Impairment lymphedema left LE Short Term Goal (STG) Patient will be instructed in all aspects of lymphedema self -care to include skin care, elevation, self-massage, self- bandaging/compression options, and lymphedema exercises. STG Duration 04/26/24 Display Card Writer Goal (LTG) Decrease patient?s lymphedema to a stable level (no increase or decrease greater than 1 cm over the course of 1 week), patient to be independent with all aspects of self-care for lymphedema, and will obtain appropriate compression garment for lymphedema management in the home. LTG Duration 06/23/24 Assessment Summary Assessment Patient circumferential measurements showed some increase today due to not wearing compression today due to having appointment with PT; patient reminded of importance of wearing compression consistently during the day. Showed her options for donning compression stockings; various donning aids as well as gloves and Dycem Physical Therapy Plan Frequency and Duration Frequency of Treatment 20 visits Duration of treatment (weeks) 12 Plan of Care Start Date 03/23/24 Plan of Care End Date 06/23/24 Therapeutic Interventions Therapeutic Interventions Home Exercise Program, Lymphedema Management,Manual Therapy,Patient/Caregiver Education,Self-Care/Home Management,Soft Tissue Mobilization,Taping, Therapeutic Exercises Modalities Vasopneumatic Devices Next Visit Focus/Plan Next Note Type Treatment Note Next Visit Plan circumferential measurements, continue CDT. PT to send patient information to [facility] for patient appointment.
--- NOTE | 2024-04-13 11:16 | PT.OTN ---
Current Diagnoses Lymphedema, not elsewhere classified (04/13/24) Other specified soft tissue disorders (04/13/24) Difficulty in walking, not elsewhere classified (04/13/24) Physical Therapy Treatment Note PT-OP-A Visit Information Start: 03/23/24 08:14 Freq: Status: Active Protocol: Document 04/13/24 10:33 SAK (Rec: 04/13/24 11:16 SAK [id number]) Out-Patient Physical Therapy Visit Information Visit Information Visit Type Treatment Note Visit Start Time 10:34 Visit Stop Time 11:58 Visit Number 4 Evaluation Information Evaluation Date 02/26/24 PT-OP-B Current Condition Start: 03/23/24 08:14 Freq: Status: Active Protocol: Document 04/13/24 10:33 SAK (Rec: 04/13/24 11:16 SAK [id number]) Current Condition History of Current Condition Onset Date 2 months Current Complaints left leg swelling History of Current Condition putting pants on noticed ankle swelling, then pretty soon whole leg up to groin, cause unknown. hysterectomy when young, spinal fusion 3-4 yrs ago. Started taking a statin but after had already experience swelling. Doesn't remember getting a bite, but noticed to celis on her ankle, was given antibiotic, no change in swelling. Denies redness or warmth. Wore compression stockings thigh high, have pantyhose style but hasn't tried yet but very hard to don. Unsure of compression level, thinks 30 Better in am, gets worse throughout the day. Uses Cetaphil lotion on leg. Prior Treatments and Tests MRI and ultrasound; no blood clot, no mass. Future Testing and Treatments Planned none PT-OP-C Subjective Start: 03/23/24 08:14 Freq: Status: Active Protocol: Document 04/13/24 10:33 SAK (Rec: 04/13/24 11:16 SAK [id number]) OP-PT Subjective Patient Comments Patient Comments Exhausted after having company . Feels like she strained something right LE, moving slowly. Wore compression, did a lot of walking, but didn't use exercise bike as usual , states was eating things she normally doesn't. States gained 3 lbs. She didn't put compression on this am due to PT apppointment. Has appointment with [facility] this Friday to be measured for compression garments. PT-OP-G Mobility & Gait Start: 03/23/24 08:14 Freq: Status: Active Protocol: Document 03/23/24 08:14 SAK (Rec: 03/24/24 16:35 [facility] [id number]) OP Gait Assessment Assistive Devices Assistive Device None Gait Deviations General Gait Pattern Decreased Stride Length, Decreased Feet Clearance Comments Gait Comments swelling PT-OP-J Posture/Palpation/Skin Start: 03/23/24 08:14 Freq: Status: Active Protocol: Document 03/23/24 08:14 SAK (Rec: 03/24/24 16:35 [facility] [id number]) Skin Assessment Edema Assessment left LE Edema Type Non-Pitting Edema Appearance Puffy Subjective Edema Description Tightness PT-OP-K Range of Motion Start: 03/23/24 08:14 Freq: Status: Active Protocol: Document 03/23/24 08:14 SAK (Rec: 03/24/24 16:35 [facility] [id number]) Hip Goniometric Range of Motion Hip roc Hip ROM WFL Yes Knee Goniometric Range of Motion Knee roc Knee ROM WFL Yes Ankle and Foot Goniometric Range of Motion Ankle and Foot Left Ankle/Foot ROM WFL No Dorsiflexion with Knee Flexed 5 Dorsiflexion with Knee Extended 0 right Ankle/Foot ROM WFL Yes PT-OP-L Special Tests Start: 03/23/24 08:14 Freq: Status: Active Protocol: Document 03/23/24 08:14 SAK (Rec: 03/24/24 16:36 [facility] [id number]) Special Tests Other Special Tests Special Tests Stemmer sign positive left PT-OP-N Lymphedema Start: 03/23/24 08:14 Freq: Status: Active Protocol: Document 04/13/24 10:33 SAK (Rec: 04/13/24 11:16 [facility] [id number]) Lymphedema Measurements Lower Extremity Circumference Measurements Left Affected MT Heads 22 cm Mid-foot 22 cm Medial Malleolus 24.7 cm 10 cm From Medial Malleolus 23.9 cm 20 cm From Medial Malleolus 34.3 cm 30 cm From Medial Malleolus 37.8 cm 40 cm From Medial Malleolus 39.6 cm 50 cm From Medial Malleolus 44.7 cm 60 cm From Medial Malleolus 52.7 cm 70 cm From Medial Malleolus 65.9 cm Knee Joint 39.3 cm PT-OP-Q Treatments Start: 03/23/24 08:14 Freq: Status: Active Protocol: Document 04/13/24 10:33 [facility] (Rec: 04/13/24 11:16 [facility] [id number]) Lymphedema Treatment Manual Lymphatic Drainage Location for left LE edema reduction Comments with patient education Lymphedema Wrapping Materials assisted with patient education pantyhose style compression stockings shown options for donning aids and gloves, Dycem for ease of donning Sequential Lymphedema Exercises Comments Patient continues with walking and bike riding for her exercise Compression Garment Assessment Compression Garment Assessment Details Patient still to make appointment at [facility]; did not this week due to having company Patient Education Compression Garments further discussion, recommend panty-hose style Sequential Lymphedema Exercises patient performing at home and is riding exercise bike w/o compression Other reviewed need to wear compression consistently, due to proximal medial thigh pocket of swelling recommend pantyhose style compression at 20-30 mm Hg. PT-OP-T Assessment and Plan Start: 03/23/24 08:14 Freq: Status: Active Protocol: Document 04/13/24 10:33 [facility] (Rec: 04/13/24 11:16 [facility] [id number]) Physical Therapy Assessment Goals Two Impairment decrease in ability to walk or do usual activities due to weight of left LE Mcc Goal (LTG) patient will be able to resume going for walks and return to all usual activities LTG Duration 06/23/24 One Impairment lymphedema left LE Short Term Goal (STG) Patient will be instructed in all aspects of lymphedema self -care to include skin care, elevation, self-massage, self- bandaging/compression options, and lymphedema exercises. STG Duration 04/26/24 Mcc Goal (LTG) Decrease patient?s lymphedema to a stable level (no increase or decrease greater than 1 cm over the course of 1 week), patient to be independent with all aspects of self-care for lymphedema, and will obtain appropriate compression garment for lymphedema management in the home. LTG Duration 06/23/24 Assessment Summary Assessment Noted some increase in circumferential measurements today likely due to altered diet with weight gain, lack of use of exercise bike but more time on feet, and not wearing compression this am due to having PT appointment today; reviewed importance of consistent compression, wear even when has PT appointment. Physical Therapy Plan Frequency and Duration Frequency of Treatment 20 visits Duration of treatment (weeks) 12 Plan of Care Start Date 03/23/24 Plan of Care End Date 06/23/24 Therapeutic Interventions Therapeutic Interventions Home Exercise Program, Lymphedema Management,Manual Therapy,Patient/Caregiver Education,Self-Care/Home Management,Soft Tissue Mobilization,Taping, Therapeutic Exercises Modalities Vasopneumatic Devices Next Visit Focus/Plan Next Note Type Treatment Note Next Visit Plan Continue complete decongestive therapy for left LE lymphedema. Patient to go to [facility] this Friday to consult regarding compression garments.
--- NOTE | 2024-04-15 15:24 | PT.OTN ---
Current Diagnoses Lymphedema, not elsewhere classified (04/15/24) Other specified soft tissue disorders (04/15/24) Difficulty in walking, not elsewhere classified (04/15/24) Physical Therapy Treatment Note PT-OP-A Visit Information Start: 03/23/24 08:14 Freq: Status: Active Protocol: Document 04/15/24 14:29 SAK (Rec: 04/15/24 15:24 SAK [id number]) Out-Patient Physical Therapy Visit Information Visit Information Visit Type Treatment Note Visit Start Time 14:30 Visit Number 5 Evaluation Information Evaluation Date 02/26/24 PT-OP-B Current Condition Start: 03/23/24 08:14 Freq: Status: Active Protocol: Document 04/15/24 14:29 SAK (Rec: 04/15/24 15:24 SAK [id number]) Current Condition History of Current Condition Onset Date 2 months Current Complaints left leg swelling History of Current Condition putting pants on noticed ankle swelling, then pretty soon whole leg up to groin, cause unknown. hysterectomy when young, spinal fusion 3-4 yrs ago. Started taking a statin but after had already experience swelling. Doesn't remember getting a bite, but noticed to celis on her ankle, was given antibiotic, no change in swelling. Denies redness or warmth. Wore compression stockings thigh high, have pantyhose style but hasn't tried yet but very hard to don. Unsure of compression level, thinks 30 Better in am, gets worse throughout the day. Uses Cetaphil lotion on leg. Prior Treatments and Tests MRI and ultrasound; no blood clot, no mass. Future Testing and Treatments Planned none PT-OP-C Subjective Start: 03/23/24 08:14 Freq: Status: Active Protocol: Document 04/15/24 14:29 SAK (Rec: 04/15/24 15:24 SAK [id number]) OP-PT Subjective Patient Comments Patient Comments No new c/o. Wearing pantyhose style compression stockings today, poor fit at feet. Looking forward to going to [facility] for compression garment consult. Reports wears compression all day but after removing at night she wakes up more swollen in am. PT-OP-G Mobility & Gait Start: 03/23/24 08:14 Freq: Status: Active Protocol: Document 03/23/24 08:14 SAK (Rec: 03/24/24 16:35 [facility] [id number]) OP Gait Assessment Assistive Devices Assistive Device None Gait Deviations General Gait Pattern Decreased Stride Length, Decreased Feet Clearance Comments Gait Comments swelling PT-OP-J Posture/Palpation/Skin Start: 03/23/24 08:14 Freq: Status: Active Protocol: Document 03/23/24 08:14 SAK (Rec: 03/24/24 16:35 [facility] [id number]) Skin Assessment Edema Assessment left LE Edema Type Non-Pitting Edema Appearance Puffy Subjective Edema Description Tightness PT-OP-K Range of Motion Start: 03/23/24 08:14 Freq: Status: Active Protocol: Document 03/23/24 08:14 SAK (Rec: 03/24/24 16:35 [facility] [id number]) Hip Goniometric Range of Motion Hip roc Hip ROM WFL Yes Knee Goniometric Range of Motion Knee roc Knee ROM WFL Yes Ankle and Foot Goniometric Range of Motion Ankle and Foot Left Ankle/Foot ROM WFL No Dorsiflexion with Knee Flexed 5 Dorsiflexion with Knee Extended 0 right Ankle/Foot ROM WFL Yes PT-OP-L Special Tests Start: 03/23/24 08:14 Freq: Status: Active Protocol: Document 03/23/24 08:14 SAK (Rec: 03/24/24 16:36 [facility] [id number]) Special Tests Other Special Tests Special Tests Stemmer sign positive left PT-OP-N Lymphedema Start: 03/23/24 08:14 Freq: Status: Active Protocol: Document 04/15/24 14:29 SAK (Rec: 04/15/24 15:24 [facility] [id number]) Lymphedema Measurements Lower Extremity Circumference Measurements Left Affected MT Heads 21.8 cm Mid-foot 22.4 cm Medial Malleolus 23.5 cm 10 cm From Medial Malleolus 23 cm 20 cm From Medial Malleolus 34.2 cm 30 cm From Medial Malleolus 37.2 cm 40 cm From Medial Malleolus 39.2 cm 50 cm From Medial Malleolus 44.7 cm 60 cm From Medial Malleolus 52.7 cm 70 cm From Medial Malleolus 64.7 cm Knee Joint 38.3 cm PT-OP-Q Treatments Start: 03/23/24 08:14 Freq: Status: Active Protocol: Document 04/15/24 14:29 [facility] (Rec: 04/15/24 15:24 [facility] [id number]) Lymphedema Treatment Manual Lymphatic Drainage Location for left LE edema reduction Comments patient review and return demo Lymphedema Wrapping Materials Patient able to don well independently now Sequential Lymphedema Exercises Comments Reviewed supine and sitting sequential lymphedema exercises Compression Garment Assessment Compression Garment Assessment Details current pantyhose style not fitting adequately, recommend open toe pantyhose style 20-30 mm Hg compression stockings, potentially nighttime garments as well. PT-OP-T Assessment and Plan Start: 03/23/24 08:14 Freq: Status: Active Protocol: Document 04/15/24 14:29 [facility] (Rec: 04/15/24 15:24 [facility] [id number]) Physical Therapy Assessment Goals Two Impairment decrease in ability to walk or do usual activities due to weight of left LE Fpc Goal (LTG) patient will be able to resume going for walks and return to all usual activities 04/15/24: good goal progress, now can go for short walks LTG Duration 06/23/24 One Impairment lymphedema left LE Short Term Goal (STG) Patient will be instructed in all aspects of lymphedema self -care to include skin care, elevation, self-massage, self- bandaging/compression options, and lymphedema exercises. 04/15/24: goal met STG Duration goa met Utility Sales Representative Goal (LTG) Decrease patient?s lymphedema to a stable level (no increase or decrease greater than 1 cm over the course of 1 week), patient to be independent with all aspects of self-care for lymphedema, and will obtain appropriate compression garment for lymphedema management in the home. 04/15/24: good goal progress, patient going for consult tomorrow regarding garments. LTG Duration 06/23/24 Assessment Summary Assessment Decrease in circumferential measurements today, good compliance to self care. Feel she is ready for garment consult, has appointment tomorrow at [facility], will consult with them further as needed. Recommend Juzo pantyhose style 20-30 mm Hg compression stockings, she prefers open toe. Feel she would benefit from the use of night garments as well (such as Tribute Night) for entire left LE due to increase in edema overnight indicating need for compression at night as well as day. Physical Therapy Plan Frequency and Duration Frequency of Treatment 20 visits Duration of treatment (weeks) 12 Plan of Care Start Date 03/23/24 Plan of Care End Date 06/23/24 Therapeutic Interventions Therapeutic Interventions Home Exercise Program, Lymphedema Management,Manual Therapy,Patient/Caregiver Education,Self-Care/Home Management,Soft Tissue Mobilization,Taping, Therapeutic Exercises Modalities Vasopneumatic Devices Next Visit Focus/Plan Next Note Type Treatment Note Next Visit Plan [facility] PT 2 further sessions, assure good fit of compression and full independence and compliance with all aspects of self care for lymphedema left LE.
--- NOTE | 2024-04-20 11:22 | PT.OTN ---
Current Diagnoses Lymphedema, not elsewhere classified (04/20/24) Other specified soft tissue disorders (04/20/24) Difficulty in walking, not elsewhere classified (04/20/24) Physical Therapy Treatment Note PT-OP-A Visit Information Start: 03/23/24 08:14 Freq: Status: Active Protocol: Document 04/20/24 10:34 SAK (Rec: 04/20/24 10:52 [facility] [id number]) Out-Patient Physical Therapy Visit Information Visit Information Visit Type Treatment Note Visit Start Time 10:35 Visit Stop Time 11:57 Visit Number 6 PT-OP-B Current Condition Start: 03/23/24 08:14 Freq: Status: Active Protocol: Document 04/20/24 10:34 SAK (Rec: 04/20/24 10:52 [facility] [id number]) Current Condition History of Current Condition Onset Date 2 months Current Complaints left leg swelling History of Current Condition putting pants on noticed ankle swelling, then pretty soon whole leg up to groin, cause unknown. hysterectomy when young, spinal fusion 3-4 yrs ago. Started taking a statin but after had already experience swelling. Doesn't remember getting a bite, but noticed to celis on her ankle, was given antibiotic, no change in swelling. Denies redness or warmth. Wore compression stockings thigh high, have pantyhose style but hasn't tried yet but very hard to don. Unsure of compression level, thinks 30 Better in am, gets worse throughout the day. Uses Cetaphil lotion on leg. Prior Treatments and Tests MRI and ultrasound; no blood clot, no mass. Future Testing and Treatments Planned none PT-OP-C Subjective Start: 03/23/24 08:14 Freq: Status: Active Protocol: Document 04/20/24 10:34 SAK (Rec: 04/20/24 10:52 [facility] [id number]) OP-PT Subjective Patient Comments Patient Comments Has gotten ordered pantyhose style compression stockings through [facility] size M 20-30 mm Hg. Anticipated to be here next week. PT-OP-G Mobility & Gait Start: 03/23/24 08:14 Freq: Status: Active Protocol: Document 03/23/24 08:14 SAK (Rec: 03/24/24 16:35 [facility] [id number]) OP Gait Assessment Assistive Devices Assistive Device None Gait Deviations General Gait Pattern Decreased Stride Length, Decreased Feet Clearance Comments Gait Comments swelling PT-OP-J Posture/Palpation/Skin Start: 03/23/24 08:14 Freq: Status: Active Protocol: Document 03/23/24 08:14 SAK (Rec: 03/24/24 16:35 [facility] [id number]) Skin Assessment Edema Assessment left LE Edema Type Non-Pitting Edema Appearance Puffy Subjective Edema Description Tightness PT-OP-K Range of Motion Start: 03/23/24 08:14 Freq: Status: Active Protocol: Document 03/23/24 08:14 SAK (Rec: 03/24/24 16:35 [facility] [id number]) Hip Goniometric Range of Motion Hip roc Hip ROM WFL Yes Knee Goniometric Range of Motion Knee roc Knee ROM WFL Yes Ankle and Foot Goniometric Range of Motion Ankle and Foot Left Ankle/Foot ROM WFL No Dorsiflexion with Knee Flexed 5 Dorsiflexion with Knee Extended 0 right Ankle/Foot ROM WFL Yes PT-OP-L Special Tests Start: 03/23/24 08:14 Freq: Status: Active Protocol: Document 03/23/24 08:14 SAK (Rec: 03/24/24 16:36 [facility] [id number]) Special Tests Other Special Tests Special Tests Stemmer sign positive left PT-OP-N Lymphedema Start: 03/23/24 08:14 Freq: Status: Active Protocol: Document 04/20/24 10:34 SAK (Rec: 04/20/24 10:52 [facility] [id number]) Lymphedema Measurements Lower Extremity Circumference Measurements Left Affected MT Heads 21.8 cm Mid-foot 21.5 cm Medial Malleolus 23.2 cm 10 cm From Medial Malleolus 23.1 cm 20 cm From Medial Malleolus 33.8 cm 30 cm From Medial Malleolus 36.8 cm 40 cm From Medial Malleolus 38.7 cm 50 cm From Medial Malleolus 43.3 cm 60 cm From Medial Malleolus 52.7 cm 70 cm From Medial Malleolus 64 cm Knee Joint 39.1 cm PT-OP-Q Treatments Start: 03/23/24 08:14 Freq: Status: Active Protocol: Document 04/15/24 14:29 SAK (Rec: 04/15/24 15:24 [facility] [id number]) Lymphedema Treatment Manual Lymphatic Drainage Location for left LE edema reduction Comments patient review and return demo Lymphedema Wrapping Materials Patient able to don well independently now Sequential Lymphedema Exercises Comments Reviewed supine and sitting sequential lymphedema exercises Compression Garment Assessment Compression Garment Assessment Details current pantyhose style not fitting adequately, recommend open toe pantyhose style 20-30 mm Hg compression stockings, potentially nighttime garments as well. PT-OP-T Assessment and Plan Start: 03/23/24 08:14 Freq: Status: Active Protocol: Document 04/20/24 10:34 [facility] (Rec: 04/20/24 10:52 [facility] [id number]) Physical Therapy Assessment Goals Two Impairment decrease in ability to walk or do usual activities due to weight of left LE Granite Setter Goal (LTG) patient will be able to resume going for walks and return to all usual activities 04/15/24: good goal progress, now can go for short walks LTG Duration 06/23/24 One Impairment lymphedema left LE Short Term Goal (STG) Patient will be instructed in all aspects of lymphedema self -care to include skin care, elevation, self-massage, self- bandaging/compression options, and lymphedema exercises. 04/15/24: goal met STG Duration goa met Granite Setter Goal (LTG) Decrease patient?s lymphedema to a stable level (no increase or decrease greater than 1 cm over the course of 1 week), patient to be independent with all aspects of self-care for lymphedema, and will obtain appropriate compression garment for lymphedema management in the home. 04/15/24: good goal progress, patient going for consult tomorrow regarding garments. LTG Duration 06/23/24 Assessment Summary Assessment Further decrease in many circumferential measurements, otherwise stable. Good compliance to self care with elevation, self MLD, skin care , exercise, and compression. Should get new compression stockings next week so will evaluate fit and anticipate discharge at that time. Physical Therapy Plan Frequency and Duration Frequency of Treatment 20 visits Duration of treatment (weeks) 12 Plan of Care Start Date 03/23/24 Plan of Care End Date 06/23/24 Therapeutic Interventions Therapeutic Interventions Home Exercise Program, Lymphedema Management,Manual Therapy,Patient/Caregiver Education,Self-Care/Home Management,Soft Tissue Mobilization,Taping, Therapeutic Exercises Modalities Vasopneumatic Devices Next Visit Focus/Plan Next Note Type Treatment Note Next Visit Plan [facility] PT 1 further sessions, assure good fit of compression and full independence and compliance with all aspects of self care for lymphedema left LE.
--- NOTE | 2024-04-28 15:27 | PT.OTN ---
Current Diagnoses Lymphedema, not elsewhere classified (04/28/24) Other specified soft tissue disorders (04/28/24) Difficulty in walking, not elsewhere classified (04/28/24) Physical Therapy Treatment Note PT-OP-A Visit Information Start: 03/23/24 08:14 Freq: Status: Active Protocol: Document 04/28/24 14:30 SAK (Rec: 04/28/24 15:26 [facility] [id number]) Out-Patient Physical Therapy Visit Information Visit Information Visit Type Treatment Note Visit Note Hasn't gotten new stockings yet, agreeable to after today' s treatment wait until patient obtains compression garment and contact PT. Has been doing self MLD, exercise, elevation. Visit Start Time 14:30 Visit Stop Time 15:43 Visit Number 7 Evaluation Information Evaluation Date 02/26/24 PT-OP-B Current Condition Start: 03/23/24 08:14 Freq: Status: Active Protocol: Document 04/28/24 14:30 SAK (Rec: 04/28/24 15:26 [facility] [id number]) Current Condition History of Current Condition Onset Date 2 months Current Complaints left leg swelling History of Current Condition putting pants on noticed ankle swelling, then pretty soon whole leg up to groin, cause unknown. hysterectomy when young, spinal fusion 3-4 yrs ago. Started taking a statin but after had already experience swelling. Doesn't remember getting a bite, but noticed to celis on her ankle, was given antibiotic, no change in swelling. Denies redness or warmth. Wore compression stockings thigh high, have pantyhose style but hasn't tried yet but very hard to don. Unsure of compression level, thinks 30 Better in am, gets worse throughout the day. Uses Cetaphil lotion on leg. Prior Treatments and Tests MRI and ultrasound; no blood clot, no mass. Future Testing and Treatments Planned none PT-OP-C Subjective Start: 03/23/24 08:14 Freq: Status: Active Protocol: Document 04/20/24 10:34 SAK (Rec: 04/20/24 10:52 [facility] [id number]) OP-PT Subjective Patient Comments Patient Comments Has gotten ordered pantyhose style compression stockings through [facility] size M 20-30 mm Hg. Anticipated to be here next week. PT-OP-G Mobility & Gait Start: 03/23/24 08:14 Freq: Status: Active Protocol: Document 03/23/24 08:14 SAK (Rec: 03/24/24 16:35 [facility] [id number]) OP Gait Assessment Assistive Devices Assistive Device None Gait Deviations General Gait Pattern Decreased Stride Length, Decreased Feet Clearance Comments Gait Comments swelling PT-OP-J Posture/Palpation/Skin Start: 03/23/24 08:14 Freq: Status: Active Protocol: Document 03/23/24 08:14 SAK (Rec: 03/24/24 16:35 [facility] [id number]) Skin Assessment Edema Assessment left LE Edema Type Non-Pitting Edema Appearance Puffy Subjective Edema Description Tightness PT-OP-K Range of Motion Start: 03/23/24 08:14 Freq: Status: Active Protocol: Document 03/23/24 08:14 SAK (Rec: 03/24/24 16:35 [facility] [id number]) Hip Goniometric Range of Motion Hip roc Hip ROM WFL Yes Knee Goniometric Range of Motion Knee roc Knee ROM WFL Yes Ankle and Foot Goniometric Range of Motion Ankle and Foot Left Ankle/Foot ROM WFL No Dorsiflexion with Knee Flexed 5 Dorsiflexion with Knee Extended 0 right Ankle/Foot ROM WFL Yes PT-OP-L Special Tests Start: 03/23/24 08:14 Freq: Status: Active Protocol: Document 03/23/24 08:14 SAK (Rec: 03/24/24 16:36 [facility] [id number]) Special Tests Other Special Tests Special Tests Stemmer sign positive left PT-OP-N Lymphedema Start: 03/23/24 08:14 Freq: Status: Active Protocol: Document 04/28/24 14:30 SAK (Rec: 04/28/24 15:26 [facility] [id number]) Lymphedema Measurements Lower Extremity Circumference Measurements Left Affected MT Heads 21.8 cm Mid-foot 21.8 cm Medial Malleolus 23.5 cm 10 cm From Medial Malleolus 23.3 cm 20 cm From Medial Malleolus 34.7 cm 30 cm From Medial Malleolus 36.5 cm 40 cm From Medial Malleolus 39.4 cm 50 cm From Medial Malleolus 45.3 cm 60 cm From Medial Malleolus 54.8 cm 70 cm From Medial Malleolus 67.1 cm Knee Joint 38.7 cm PT-OP-Q Treatments Start: 03/23/24 08:14 Freq: Status: Active Protocol: Document 04/28/24 14:30 [facility] (Rec: 04/28/24 15:26 [facility] [id number]) Self-Care/Home Management Treatment Education Other Education management of left leg cramp experienced during treatment, instructed in stretching, increased water intake, potential supplements- consult with physician. Lymphedema Treatment Manual Lymphatic Drainage Location for left LE edema reduction Comments patient further review and return demo Lymphedema Wrapping Materials Patient able to don well independently now Sequential Lymphedema Exercises Location left LE, trunk per sequential lymphedema exercises supine Comments patient demonstrating good understanding. Compression Garment Assessment Compression Garment Assessment Details Has not yet received new compression garments PT-OP-T Assessment and Plan Start: 03/23/24 08:14 Freq: Status: Active Protocol: Document 04/28/24 14:30 [facility] (Rec: 04/28/24 15:26 [facility] [id number]) Physical Therapy Assessment Goals Two Impairment decrease in ability to walk or do usual activities due to weight of left LE Registrar Nurses' Registry Goal (LTG) patient will be able to resume going for walks and return to all usual activities 04/15/24: good goal progress, now can go for short walks LTG Duration 06/23/24 One Impairment lymphedema left LE Short Term Goal (STG) Patient will be instructed in all aspects of lymphedema self -care to include skin care, elevation, self-massage, self- bandaging/compression options, and lymphedema exercises. 04/15/24: goal met STG Duration goa met [facility] Goal (LTG) Decrease patient?s lymphedema to a stable level (no increase or decrease greater than 1 cm over the course of 1 week), patient to be independent with all aspects of self-care for lymphedema, and will obtain appropriate compression garment for lymphedema management in the home. 04/15/24: good goal progress, patient going for consult tomorrow regarding garments. LTG Duration 06/23/24 Assessment Summary Assessment Variable circumferential measurements today, decreased distally, increased proximally , anticipate improvement with new compression garments. Physical Therapy Plan Frequency and Duration Frequency of Treatment 20 visits Duration of treatment (weeks) 12 Plan of Care Start Date 03/23/24 Plan of Care End Date 06/23/24 Therapeutic Interventions Therapeutic Interventions Home Exercise Program, Lymphedema Management,Manual Therapy,Patient/Caregiver Education,Self-Care/Home Management,Soft Tissue Mobilization,Taping, Therapeutic Exercises Modalities Vasopneumatic Devices Next Visit Focus/Plan Next Note Type Treatment Note Next Visit Plan Hold PT until patient obtains compression garment, anticipate 1 further treatment session (45 min) to assess fit and take measurements to determine effectiveness.
--- NOTE | 2024-05-12 15:48 | PT.OPDS ---
Current Diagnoses Lymphedema, not elsewhere classified (04/28/24) Other specified soft tissue disorders (04/28/24) Difficulty in walking, not elsewhere classified (04/28/24) Visit Care Team Role Provider Type Shelby Griffin PA-C Family Provider [facility] Restorer Primary Care Provider Specialty: Medical Address: [address] [place] [address], [id number] Email: Chase Lombardi MD Attending Provider Physician Referring Provider Specialty: Orthopedics Orthopedic Surgery Address: [address] [place] [address], [id number] Email: [email or web address] Visit Number Visit Number 7 Discharge Summary PT-OP-B Current Condition Start: 03/23/24 08:14 Freq: Status: Active Protocol: Document 04/28/24 14:30 SAK (Rec: 04/28/24 15:26 [facility] [id number]) Current Condition History of Current Condition Onset Date 2 months Current Complaints left leg swelling History of Current Condition putting pants on noticed ankle swelling, then pretty soon whole leg up to groin, cause unknown. hysterectomy when young, spinal fusion 3-4 yrs ago. Started taking a statin but after had already experience swelling. Doesn't remember getting a bite, but noticed to celis on her ankle, was given antibiotic, no change in swelling. Denies redness or warmth. Wore compression stockings thigh high, have pantyhose style but hasn't tried yet but very hard to don. Unsure of compression level, thinks 30 Better in am, gets worse throughout the day. Uses Cetaphil lotion on leg. Prior Treatments and Tests MRI and ultrasound; no blood clot, no mass. Future Testing and Treatments Planned none PT-OP-C Subjective Start: 03/23/24 08:14 Freq: Status: Active Protocol: Document 04/20/24 10:34 SAK (Rec: 04/20/24 10:52 [facility]AK [id number]) OP-PT Subjective Patient Comments Patient Comments Has gotten ordered pantyhose style compression stockings through [facility] size M 20-30 mm Hg. Anticipated to be here next week. PT-OP-G Mobility & Gait Start: 03/23/24 08:14 Freq: Status: Active Protocol: Document 03/23/24 08:14 SAK (Rec: 03/24/24 16:35 [facility] [id number]) OP Gait Assessment Assistive Devices Assistive Device None Gait Deviations General Gait Pattern Decreased Stride Length, Decreased Feet Clearance Comments Gait Comments swelling PT-OP-J Posture/Palpation/Skin Start: 03/23/24 08:14 Freq: Status: Active Protocol: Document 03/23/24 08:14 SAK (Rec: 03/24/24 16:35 [facility] [id number]) Skin Assessment Edema Assessment left LE Edema Type Non-Pitting Edema Appearance Puffy Subjective Edema Description Tightness PT-OP-K Range of Motion Start: 03/23/24 08:14 Freq: Status: Active Protocol: Document 03/23/24 08:14 SAK (Rec: 03/24/24 16:35 [facility] [id number]) Hip Goniometric Range of Motion Hip roc Hip ROM WFL Yes Knee Goniometric Range of Motion Knee roc Knee ROM WFL Yes Ankle and Foot Goniometric Range of Motion Ankle and Foot Left Ankle/Foot ROM WFL No Dorsiflexion with Knee Flexed 5 Dorsiflexion with Knee Extended 0 right Ankle/Foot ROM WFL Yes PT-OP-L Special Tests Start: 03/23/24 08:14 Freq: Status: Active Protocol: Document 03/23/24 08:14 SAK (Rec: 03/24/24 16:36 [facility] [id number]) Special Tests Other Special Tests Special Tests Stemmer sign positive left PT-OP-N Lymphedema Start: 03/23/24 08:14 Freq: Status: Active Protocol: Document 04/28/24 14:30 SAK (Rec: 04/28/24 15:26 [facility] [id number]) Lymphedema Measurements Lower Extremity Circumference Measurements Left Affected MT Heads 21.8 cm Mid-foot 21.8 cm Medial Malleolus 23.5 cm 10 cm From Medial Malleolus 23.3 cm 20 cm From Medial Malleolus 34.7 cm 30 cm From Medial Malleolus 36.5 cm 40 cm From Medial Malleolus 39.4 cm 50 cm From Medial Malleolus 45.3 cm 60 cm From Medial Malleolus 54.8 cm 70 cm From Medial Malleolus 67.1 cm Knee Joint 38.7 cm PT-OP-T Assessment and Plan Start: 03/23/24 08:14 Freq: Status: Active Protocol: Document 05/12/24 15:48 [facility] (Rec: 05/12/24 15:48 [facility] [id number]) Physical Therapy Plan Discharge Physical Therapy Discharge Reasons Goals Met
== END 2024-05-18 08:32 | disposition home or self-care (01) ==
LOC: PHYS 14:30
PROVIDERS: Family Provider Physician Assistant; PCP Physician Assistant; Referring Provider Orthopaedic Surgery Adult Reconstructive Orthopaedic Surgery; Visit Provider Orthopaedic Surgery Adult Reconstructive Orthopaedic Surgery
DX: I89.0 Lymphedema, not elsewhere classified (principal); M79.89 Other specified soft tissue disorders; R26.2 Difficulty in walking, not elsewhere classified
CPT/HCPCS: 29581; 97016; 97110; 97140; 97162; 97530; 97535

== ENCOUNTER → 2025-01-06 14:19 | Outpatient (CLI) | payer MEDICARE, SELFPAY ==
[2020-06-29 18:40] VITALS: BMI 22.4
--- NOTE | 2025-01-06 14:23 | DI.MG.S_ITS ---
MM screening mammo BI: 01/06/2025. BI-RADS: 1 CLINICAL: 74-year old female for bilateral screening mammogram. Tyrer-Cuzick lifetime risk of 3.8%. No personal or first-degree family history of breast cancer. Current reported family history of breast cancer: paternal grandmother. PRIOR EXAMS 12/31/2023, 12/18/2022, 12/17/2021, 10/04/2020, 10/14/2018, 09/26/2017, 09/12/2016, 09/05/2015, 08/31/2015. MAMMOGRAPHY TECHNIQUE: 2D and 3D (tomosynthesis) digital mammographic views obtained, with additional images as needed for full coverage. Current study was also evaluated with a Computer Aided Detection (CAD) system. DENSITY B. There are scattered areas of fibroglandular density. MAMMOGRAPHY FINDINGS Bilateral: No suspicious mass, asymmetry, microcalcification, or other abnormality seen. IMPRESSION: * No evidence of malignancy. RECOMMENDATIONS Bilateral * Annual screening mammography. OVERALL ASSESSMENT CATEGORY BI-RADS-1: Negative. The [employer] recommends annual screening mammography beginning at age 40 for women with average risk of breast cancer. ELECTRONICALLY SIGNED: Tano Vasques M.D. on 01/07/2025 at 09:06:29 AM PT Interpreting Station ID: [id number]
== END ==
PROVIDERS: Family Provider Physician Assistant; PCP Physician Assistant; Referring Provider Physician Assistant; Visit Provider Physician Assistant
DX: Z12.31 Encounter for screening mammogram for malignant neoplasm of breast (principal); Z80.3 Family history of malignant neoplasm of breast
CPT/HCPCS: 77063; 77067